=== PATIENT | female | born 1975 | race Caucasian/White ===

== ENCOUNTER 2019-06-23 06:35 | Outpatient (CLI) | payer OTHER, SELFPAY | END 2019-06-23 06:36 | disposition home or self-care (01) | PROVIDERS: PCP Family Medicine; Visit Provider Orthopaedic Surgery | DX: Z01.812 Encounter for preprocedural laboratory examination (principal); Z20.828 Contact with and (suspected) exposure to other viral communicable diseases | CPT/HCPCS: 87635; U0003 ==

== ENCOUNTER 2019-06-25 00:36 | Outpatient (CLI) | payer OTHER, SELFPAY ==
[2019-06-25 17:59] LABS: SARS-CoV-2 RNA PCR Negative
== END 2019-06-25 00:37 | disposition home or self-care (01) ==
LOC: ANHCOVIDDT 00:36
PROVIDERS: PCP Family Medicine; Visit Provider Orthopaedic Surgery
DX: Z01.812 Encounter for preprocedural laboratory examination (principal); Z20.828 Contact with and (suspected) exposure to other viral communicable diseases
CPT/HCPCS: 87635; C9803; U0003

== ENCOUNTER 2019-06-26 02:06 | Day surgery (SDC) | payer OTHER, SELFPAY ==
[2019-06-18 16:09] VITALS: BMI 18.4
--- NOTE | 2019-06-20 13:52 | PM.IMHP ---
H&P: HPI History of Present Illness Chief complaint: Right Medial Meniscal Tear Narrative: Ashtyn Machuca is a 44 year old female Who presents with a chronic ongoing history of pain localized to right knee. Patient has most of her pain medially this is worse with activity and somewhat relieved by rest, she has pain with twisting or turning on and knee squatting kneeling going up and down stairs aggravates her symptoms. She can't stand or walk for long periods and notes some swelling in the knee as well. She tried a course of conservative measures including cortisone therapy and anti-inflammatories without significant relief. The patient then underwent an MRI scan. An MRI scan demonstrates a small longitudinal horizontal tear at the body of the medial meniscus. Articular cartilage looks good lateral meniscus is normal. Posterior anterior and collateral ligaments are also normal and well visualized. There is some edema in the infrapatellar fat pad along the trochlear groove which could related to synovitis or fat pad impingement syndrome. The patient this point is failed conservative measures and discuss further treatment options in detail Dr. Dc she is aware the above findings and now would like to proceed with a right knee arthroscopy partial medial meniscectomy. Review of Systems Review of Systems: Narrative: Ten point review of systems otherwise negative Meds Home Medications and Allergies Home Medications Medication Instructions Recorded Confirmed Type ergocalciferol (vitamin D2) 50,000 unit PO MONTHLY 06/18/19 06/18/19 History [Vitamin D2] hydrocodone-acetaminophen 1 tablet PO DAILY 06/18/19 06/18/19 History trazodone 100 mg PO HS 06/18/19 06/18/19 History Allergies Allergy/AdvReac Type Severity Reaction Status Date / Time Penicillins Allergy Mild RASH Verified 06/18/19 16:13 Exam Narrative: Exam Narrative: the patient is well-developed well-nourished female no acute distress. She is alert and oriented x3. Normal mood and affect. HEENT exam within normal limits. Heart regular rate rhythm. Lungs clear auscultation. Abdomen benign. Extremities showed the patient's right knee to be painful with manipulation range of motion. She has tenderness on the medial joint line with a positive Luan exam negative Rebecca. Knee joint is otherwise stable. She has no significant crepitation mild effusion, somewhat limited motion with pain at extremes of motion. Skin is intact without rashes or lesions. Neurovascularly she is intact. Central nervous system exam within normal limits. Patient walks with an antalgic gait because of right knee pain. Assessment and Plan Additional Plan By MRI and exam the patient is noted to have a medial meniscal tear right knee with above associated findings. The patient has discussed risks benefits limitations and alternatives of surgery in great detail with Dr. Dc, she is now to proceed with right knee arthroscopy partial medial meniscectomy proceed as indicated. The patient is scheduled to go surgery 06/25/2019 at [facility] Dr. Dc, the patient voiced understanding agrees above plan.
[2019-06-26] VITALS (7 sets, daily range): BP systolic 110–136; BP diastolic 62–82; PULSE 52–69; RESP 12–16; TEMP 36.4–36.6; O2SAT 16–100
[2019-06-26] MEDS: LACTATED RINGERS 1,000 ML 30 ML IV CONT ×2 (08:00→11:10)
--- NOTE | 2019-06-26 08:50 | WPDANESEPPF ---
Anes - Initial Pre Proc Eval Procedure: Operation Date: 06/26/19 09:30 Proposed Procedures p Right Knee Arthroscopy, Partial Medial Meniscectomy, Proceed As Indicated - Eyal Dc MD Date/Time: 06/26/19 08:50 Surgeon: Eyal Dc MD Pre Op Diagnosis: Right Medial Meniscal Tear Patient Data Age: 44 Gender: F Height: 5 ft 9 in Weight: 54.5 kg Last Vital Signs Temp 36.6 C 06/26/19 08:17 Pulse 69 06/26/19 08:17 Resp 16 06/26/19 08:17 BP 110/69 06/26/19 08:17 Pulse Ox 100 06/26/19 08:17 Allergies Allergy/AdvReac Type Severity Reaction Status Date / Time Penicillins Allergy Mild RASH Verified 06/26/19 07:50 Home Medications Medication Instructions Recorded Confirmed Type ergocalciferol (vitamin D2) 50,000 unit PO MONTHLY 06/18/19 06/26/19 History [Vitamin D2] hydrocodone-acetaminophen 1 tablet PO DAILY 06/18/19 06/26/19 History trazodone 100 mg PO HS 06/18/19 06/26/19 History Patient hx anesthesia problems: none Family hx anesthesia problems: none PMFSH Surgical History Surgical History (Updated 06/26/19 @ 08:53 by Tim Arora MD) History of tubal ligation Anes - Eval Final PreProcedure Day of Procedure 06/26/19 08:50 Patient weight: normal Heart: regular rate and rhythm Lungs: clear to auscultation Airway: Mallampati scale class 1 Neurological: alert and oriented Last oral intake: >/= 8 hours ASA classification: I Emergent: no Anesthetic plan: proceed Anesthesia type and monitoring: general LMA and standard monitoring Informed Consent: The patient's anesthetic plan and its attendant risks and benefits were discussed with the patient/family/POA. Questions were solicited and answers provided to the satisfaction of the patient/family/POA.
--- NOTE | 2019-06-26 09:29 | WPDHPUPDATE1 ---
History and Physical Update Update Date/Time: 06/26/19 09:29 History and Physical has been reviewed, including an updated exam of the patient. There are NO changes in the patient's condition. Risks, benefits, and alternatives have been discussed and questions answered. Patient agrees to proceed with procedure.
[2019-06-26] MEDS: CLINDAMYCIN 900 MG/NS 50 ML 900 MG/50 ML PIGGYBACK 50 MG IVPB (09:34)
[2019-06-26] MEDS: LIDO 1%/EPINEPHRINE 1:100,000 20 ML VIAL 10 ML INFILTRATE (09:48)
[2019-06-26] MEDS: ceFAZolin SODIUM 1 GM VIAL 2 GM IV PUSH (09:58)
--- NOTE | 2019-06-26 10:10 | PM.PROC ---
Procedure Note - Detailed Date of procedure: 06/26/19 Pre-op diagnosis: Right Medial Meniscal Tear Post-op diagnosis: same Procedure performed: [side] knee arthroscopy with partial meniscetomy Description of procedure: Patient brought to the operating room and anesthetic was administered. The knee was steriley prepped and drapped in the usual manner. Standard portals were used. Superior medial portal was used for the outflow cannula, inferior lateral portal was used for the scope, inferior medial portal was used for the instruments. Arthroscopy was performed, the patellar femoral joint degenerative changes. The medial compartment showed a smaller tear. The lateral compartment showed fraying. The ACL was intact. Using baskets and greg the meniscal tear was trimmed back to a stable base so the nothing further could be pulled into the joint. Any loose or delaminated fragments were gently trimmed to a stable base. At this point the instruments were withdrawn, sutures placed and patient left the operating room in satisfactory condition. Anesthesia: GETA Surgeon: Eyal Dc MD Estimated blood loss (mL): 20 Drains: No Packing: No Pathology: none sent Complications: No immediate complications Condition: stable Disposition: PACU
[2019-06-26] MEDS: ONDANSETRON INJ 4 MG/2 ML VIAL IV PUSH (10:55)
== END 2019-06-26 12:31 | disposition home or self-care (01) ==
PROVIDERS: PCP Family Medicine; Visit Provider Orthopaedic Surgery
PROC: (CPT 29870; principal; 2019-06-26 09:30)
DX: M23.331 Other meniscus derangements, other medial meniscus, right knee (principal)
CPT/HCPCS: 29881; A9270; J0690; J1100; J2250; J2405; J2704; J3010; J7120

== ENCOUNTER 2019-07-02 10:44 | Outpatient (CLI) | payer OTHER, SELFPAY ==
--- NOTE | ~2019-07-02 | US_ITS ---
EXAMINATION: US venous doppler LE RT DATE: 07/02/2019 11:13 INDICATION: Right calf pain. TECHNIQUE: Grayscale ultrasound images without and with compression and Doppler ultrasound images of the right lower extremity veins were obtained. COMPARISON: None. FINDINGS: The visualized portions of right common femoral vein, profunda (deep) femoral vein, femoral vein, pop liteal vein, peroneal veins, posterior tibial veins, and greater saphenous vein outflow are patent. IMPRESSION: 1. No deep venous thrombosis. Reviewed, dictated and finalized at location A.
== END 2019-07-02 10:45 | disposition home or self-care (01) ==
PROVIDERS: PCP Family Medicine; Visit Provider Orthopaedic Surgery
DX: S83.241D Other tear of medial meniscus, current injury, right knee, subsequent encounter (principal); X58.XXXD Exposure to other specified factors, subsequent encounter
CPT/HCPCS: 93971

== ENCOUNTER → 2020-05-28 00:51 | Outpatient (CLI) | payer OTHER, SELFPAY ==
[2020-05-28 21:02] LABS: SARS-CoV-2 RNA PCR Positive
== END ==
PROVIDERS: PCP Family Medicine; Visit Provider Internal Medicine Gastroenterology
DX: U07.1 COVID-19 (principal); Z01.812 Encounter for preprocedural laboratory examination
CPT/HCPCS: C9803; U0003; U0005

== ENCOUNTER 2020-08-23 01:58 | Day surgery (SDC) | payer OTHER, SELFPAY ==
[2020-05-21 09:36] VITALS: BMI 17.7
--- NOTE | 2020-05-29 13:18 | SUR.PREOP ---
1310 CALLED PATIENT REGARDING HER COVID TEST RESULTS. DISCUSSED HER SYMPTOMS WHICH THE PATIENT SAID SHE WAS HAVING SINUS CONGESTION TWO WEEKS AGO AND THOUGHT IT WAS FROM HER ALLERGIES AND CHANGE IN WEATHER. SHE STATED SHE IS FEELING FINE NOW. DISCUSSED CANCELLING HER PROCEDURE FOR SUNDAY AND TO FOLLOW UP WITH DR. SANTILLAN. PATIENT WAS SCHEDULED FOR A SCREENING AND NOT HAVING ANY GI ISSUES. DR. BROWN NOTIFIED WELL.
[2020-08-13 08:06] VITALS: BMI 17.7
[2020-08-23 06:33] VITALS: BP 109/74; PULSE 73; RESP 16; TEMP 36.2; O2SAT 99; BMI 16.8
[2020-08-23] MEDS: LACTATED RINGERS 1,000 ML 150 ML IV CONT (06:43)
--- NOTE | 2020-08-23 07:15 | WPDANESEPPF ---
Anes - Initial Pre Proc Eval Procedure: Operation Date: 08/23/20 07:30 Proposed Procedures p Screening Colonoscopy - Nahun Quinonez MD Date/Time: 08/23/20 07:15 Surgeon: Nahun Quinonez MD Pre Op Diagnosis: Neoplasm Screening Patient Data Age: 45 Gender: F Height: 1.75 m Weight: 51.7 kg Last Vital Signs Temp 97.2 F L 08/23/20 06:33 Pulse 73 08/23/20 06:33 Resp 16 08/23/20 06:33 BP 109/74 08/23/20 06:33 Pulse Ox 99 08/23/20 06:33 Allergies Allergy/AdvReac Type Severity Reaction Status Date / Time Penicillins Allergy Intermediate RASH Verified 08/23/20 06:31 Home Medications Medication Instructions Recorded Confirmed Type ergocalciferol (vitamin D2) 50,000 unit PO MONTHLY 06/18/19 08/23/20 History [Vitamin D2] hydrocodone-acetaminophen 1 tablet PO DAILY 06/18/19 08/23/20 History trazodone 100 mg PO HS 06/18/19 08/23/20 History Patient hx anesthesia problems: none Family hx anesthesia problems: none PMFSH Past Medical History Medical History (Updated 08/23/20 @ 07:15 by Roman Alonso MD) Anxiety Surgical History Surgical History (Updated 06/26/19 @ 08:53 by Tim Arora MD) History of tubal ligation Social History Social History Smoking status: Never smoker Alcohol intake: never Substance use: never Substance use type: does not use Living arrangements: with family Gender identity (if verbalized by the patient): Female Spiritual care concerns: No Anes - Eval Final PreProcedure Day of Procedure 08/23/20 07:15 Patient weight: normal Heart: regular rate and rhythm Lungs: clear to auscultation Airway: Mallampati scale class II Neurological: alert and oriented Last oral intake: >/= 8 hours ASA classification: II Emergent: no Anesthetic plan: proceed Anesthesia type and monitoring: general GIVS and standard monitoring Informed Consent: The patient's anesthetic plan and its attendant risks and benefits were discussed with the patient/family/POA. Questions were solicited and answers provided to the satisfaction of the patient/family/POA.
--- NOTE | 2020-08-23 07:30 | PM.HPGS ---
History of Present Illness History of Present Illness Consent: Risks, benefits, and alternatives have been discussed and questions answered. Patient agrees to proceed with procedure. Chief complaint: Neoplasm Screening Narrative: Ashtyn Machuca is a 45 year old female here for first screening colonoscopy Review of Systems Constitutional: Constitutional: Denies headache(s) and Denies weakness Eyes: Eyes: Denies blurry vision ENT: Reports Normal hearing present, Denies headache(s) and Denies neck pain Cardiovascular: Cardiovascular: Denies chest pain and Denies dyspnea Respiratory: Respiratory: Denies dyspnea Gastrointestinal: Gastrointestinal: Reports no additional gastrointestinal complaints Genitourinary: Genitourinary: Denies dysuria Musculoskeletal: Musculoskeletal: Denies neck pain Integumentary/Breasts: Skin/Breast: Denies dry skin Neurologic: Reports Normal hearing present, Denies headache(s) and Denies weakness Psychiatric: Psychiatric: Denies anxiety Endocrine: Endocrine: Denies change in body appearance Hematologic/Lymphatic: Hematologic/Lymphatic: Denies easy bleeding Allergic/Immunologic: Allergic/Immunologic: Denies urticaria [facility] Past Medical History Medical History (Updated 08/23/20 @ 07:31 by Nahun Quinonez MD) Anxiety Colon cancer screening Surgical History Surgical History (Updated 06/26/19 @ 08:53 by Tim Arora MD) History of tubal ligation Social History Social History Smoking status: Never smoker Alcohol intake: never Substance use: never Substance use type: does not use Living arrangements: with family Gender identity (if verbalized by the patient): Female Spiritual care concerns: No Meds Home Medications and Allergies Home Medications Medication Instructions Recorded Confirmed Type ergocalciferol (vitamin D2) 50,000 unit PO MONTHLY 06/18/19 08/23/20 History [Vitamin D2] hydrocodone-acetaminophen 1 tablet PO DAILY 06/18/19 08/23/20 History trazodone 100 mg PO HS 06/18/19 08/23/20 History Allergies Allergy/AdvReac Type Severity Reaction Status Date / Time Penicillins Allergy Intermediate RASH Verified 08/23/20 06:31 Vital Signs Vital Signs - 24 hr 08/23/20 06:33 Temperature 97.2 F L Pulse Rate 73 Respiratory Rate 16 Blood Pressure 109/74 Pulse Oximetry 99 Exam Const: General: comfortable and no acute distress HENMT: General nose exam: Normal nares present Eyes: General: appearance normal, both eyes and all related structures Neck: Neck: no JVD Resp: Auscultation: clear to auscultation bilaterally Cardio: Rate: regular rate Rhythm: regular rhythm GI: Inspection: non-distended GI Palp: Yes Soft to palpation Skin: General skin exam: normal color Neuro: General: gait normal Speech: normal speech Extrem: General: normal to inspection Psych: Mental Status: mental status grossly normal Assessment and Plan Assessment and plan (1) Colon cancer screening: Code(s): Z12.11 - Encounter for screening for malignant neoplasm of colon Status: Acute Assessment and Plan: colonoscopy
[2020-08-23 07:51] VITALS: BP 110/72; PULSE 57; RESP 16; O2SAT 100
[2020-08-23 08:01] VITALS: BP 112/62; PULSE 59; RESP 19; O2SAT 100
[2020-08-23 08:11] VITALS: BP 119/79; PULSE 59; RESP 22; O2SAT 100
== END 2020-08-23 08:20 | disposition home or self-care (01) ==
PROVIDERS: PCP Family Medicine; Visit Provider Internal Medicine Gastroenterology
PROC: 0DJD8ZZ Inspection of Lower Intestinal Tract, Via Natural or Artificial Opening Endoscopic (ICD-10-PCS; CPT 45378; principal; 2020-08-23 07:30)
DX: Z12.11 Encounter for screening for malignant neoplasm of colon (principal); D12.4 Benign neoplasm of descending colon; K64.8 Other hemorrhoids; F41.9 Anxiety disorder, unspecified
CPT/HCPCS: 45385; 88305; J2704; J7120

== ENCOUNTER 2020-10-14 14:57 | Outpatient (CLI) | payer OTHER, SELFPAY ==
--- NOTE | ~2020-10-14 | US_ITS ---
EXAMINATION: US pelvic complete w TV DATE: 10/14/2020 15:51 INDICATION: Pelvic pain. Comparison:No prior studies for comparison. TECHNIQUE: Multiple transabdominal and endovaginal sonographic images of the pelvis performed. FINDINGS: The uterus measures 9.5 x 6.2 x 4.7 cm. The endometrial complex measures 9 mm. The right ovary measures 3.2 x 2 x 2.2 cm and the left ovary measures 2.3 x 1.6 x 1.6 cm. There is 1. 9 cm right ovarian cyst. There are small follicles in each ovary. Normal doppler signal in both ovari es. There is no free fluid in the pelvis. There are no abnormal masses seen on either side. IMPRESSION: 1. Right ovarian cyst measuring 1.9 cm. Reviewed, dictated and finalized at location A.
== END 2020-10-14 14:58 | disposition home or self-care (01) ==
PROVIDERS: PCP Family Medicine; Visit Provider Nurse Practitioner
DX: R10.2 Pelvic and perineal pain (principal); N83.201 Unspecified ovarian cyst, right side
CPT/HCPCS: 76830; 76856

== ENCOUNTER 2020-10-20 08:45 | Outpatient (CLI) | payer OTHER, SELFPAY ==
--- NOTE | 2020-10-20 11:30 | NEURO_ITS ---
Impression: # Complains of left hand pain and numbness. # Subtle evolving right Carpal Tunnel Syndrome. # No ulnar neuropathy. # Normal needle/EMG exam. Nerve Conduction Studies Anti Sensory Summary Table Stim Site NR Peak (ms) P-T Amp (?V) Site1 Site2 Delta-P (ms) Dist (cm) Dejon (m/s) Left Median Anti Sensory (2-3nd Digit) Wrist 3.0 80.7 Wrist 2-3nd Digit 3.0 14.0 47 Wrist 2.8 73.1 Wrist 2-3nd Digit 3.0 14.0 47 Right Median Anti Sensory (2-3nd Digit) Wrist 3.1 80.2 Wrist 2-3nd Digit 3.1 14.0 45 Wrist 3.1 72.1 Wrist 2-3nd Digit 3.1 14.0 45 Left Radial Anti Sensory (Base 1st Digit) Wrist 2.7 19.4 Wrist Base 1st Digit 2.7 0.0 Right Radial Anti Sensory (Base 1st Digit) Wrist 2.9 25.9 Wrist Base 1st Digit 2.9 0.0 Left Ulnar Anti Sensory (5th Digit) Wrist 2.8 86.1 Wrist 5th Digit 2.8 14.0 50 Right Ulnar Anti Sensory (5th Digit) Wrist 3.0 76.7 Wrist 5th Digit 3.0 14.0 47 Motor Summary Table Stim Site NR Onset (ms) O-P Amp (mV) Site1 Site2 Delta-0 (ms) Dist (cm) Dejon (m/s) Left Median Motor (Abd Poll Brev) Wrist 3.1 6.5 Elbow Wrist 5.3 31.0 58 Elbow 8.4 8.3 Right Median Motor (Abd Poll Brev) Wrist 3.8 3.9 Elbow Wrist 4.6 26.0 57 Elbow 8.4 5.1 Left Ulnar Motor (Abd Dig Minimi) Wrist 2.4 7.2 A Elbow Wrist 4.9 29.0 59 A Elbow 7.3 6.2 Right Ulnar Motor (Abd Dig Minimi) Wrist 2.8 6.9 A Elbow Wrist 4.8 27.0 56 A Elbow 7.6 5.6 F Wave Studies NR F-Lat (ms) L-R F-Lat (ms) Left Median (Mrkrs) (Abd Poll Brev) 28.42 0.94 Right Median (Mrkrs) (Abd Poll Brev) 29.36 0.94 Left Ulnar (Mrkrs) (Abd Dig Min) 28.19 1.17 Right Ulnar (Mrkrs) (Abd Dig Min) 29.36 1.17 EMG Side Muscle Nerve Root Ins Act Fibs Amp Dur Recrt Comment Right 1stDorInt Ulnar C8-T1 Nml Nml Nml Nml Nml Right Ext Indicis Radial (Post Int) C7-8 Nml Nml Nml Nml Nml Right Ext Digitorum Radial (Post Int) C7-8 Nml Nml Nml Nml Nml Right BrachioRad Radial C5-6 Nml Nml Nml Nml Nml Right PronatorTeres Median C6-7 Nml Nml Nml Nml Nml Right Abd Poll Brev Median C8-T1 Nml Nml Nml Nml Nml Left 1stDorInt Ulnar C8-T1 Nml Nml Nml Nml Nml Left Ext Indicis Radial (Post Int) C7-8 Nml Nml Nml Nml Nml Left Ext Digitorum Radial (Post Int) C7-8 Nml Nml Nml Nml Nml Left BrachioRad Radial C5-6 Nml Nml Nml Nml Nml Left PronatorTeres Median C6-7 Nml Nml Nml Nml Nml Left Abd Poll Brev Median C8-T1 Nml Nml Nml Nml Nml Right Biceps Musculocut C5-6 Nml Nml Nml Nml Nml Right Triceps Radial C6-7-8 Nml Nml Nml Nml Nml Right Deltoid Axillary C5-6 Nml Nml Nml Nml Nml Left Biceps Musculocut C5-6 Nml Nml Nml Nml Nml Left Triceps Radial C6-7-8 Nml Nml Nml Nml Nml Left Deltoid Axillary C5-6 Nml Nml Nml Nml Nml MTDD
== END 2020-10-20 08:46 | disposition home or self-care (01) ==
PROVIDERS: PCP Family Medicine; Visit Provider Family Medicine
DX: G56.01 Carpal tunnel syndrome, right upper limb (principal)
CPT/HCPCS: 95886; 95911

== ENCOUNTER 2022-01-25 13:02 | Emergency (ER) | payer OTHER, SELFPAY ==
[2022-01-25 13:04] VITALS: BP 164/84; PULSE 82; RESP 16; TEMP 36.8; O2SAT 100
[2022-01-25 13:40] LABS: Basophils Percent Auto 0.3 % (0.2-1.2); Eosinophils Percent Auto 0.5 % (0-4.4); Hemoglobin 12.8 g/dL (12.0-15.0); Immature Granulocyte Absolute 0.01 K/mm3 (0.00-0.031); Immature Granulocyte Percent A 0.3 % (0-0.5); Lymphocytes Absolute Auto 0.78 K/mm3 (0.9-3.2); Lymphocytes Percent Auto 19.6 % (18.3-44.2); Mean Corpuscular HGB Conc 32.8 g/dl (32-36); Mean Corpuscular Hemoglobin 30.8 pg (26-34); Mean Platelet Volume 10.5 fl (7.4-10.4); Monocytes Absolute Auto 0.5 K/mm3 (0.1-0.6); Monocytes Percent Auto 13.1 % (2.6-8.5); Neutrophils Absolute Auto 2.6 K/mm3 (1.3-6.7); Neutrophils Percent Auto 66.2 % (45.5-73.1); Platelet Count Result 175 k/mm3 (150-375); Red Blood Count 4.15 M/mm3 (4.2-5.4); Red Cell Distribution Width 11.2 % (11.5-14.5)
[2022-01-25 13:54] LABS: Alanine Aminotransferase 25 U/L (6-35); Albumin Level 4.7 g/dL (3.5-5.1); Alkaline Phosphatase 57 U/L (38-126); Anion Gap 7 mmol/L (8-16); Aspartate Amino Transferase 31 U/L (14-36); Blood Urea Nitrogen 21 mg/dL (7-17); Calcium 8.8 mg/dL (8.4-10.2); Carbon Dioxide 30 mmol/L (22-30); Chloride 101 mmol/L (98-107); Estimated CRCL calculation 81 ml/min; Estimated Glomerular Filt Rate > 60; Glucose 96 mg/dL (65-110); Lipase 125 U/L (23-300); Potassium 3.7 mmol/L (3.4-5.0); Sodium 138 mmol/L (137-145)
[2022-01-25 14:07] LABS: Add Urine Microscopic? YES; Appearance Urine Clear (Clear); Bilirubin Urine 1+ (Negative); Blood Urine Trace-Intact (Negative); Color Urine Light Yellow (Yellow); Glucose Urine UA Negative (Negative); Ketones Urine 1+ mg/dL (Negative); Leukocyte Esterase Ur Trace LEU/UL (Negative); Nitrate Urine Negative (Negative); Protein Urine Negative (Negative); Specific Grav Ur >= 1.030 (1.001-1.035); Urobilinogen Urine 0.2 mg/dL (<2.0); pH Urine 5.5 (5.0-9.0)
[2022-01-25 14:16] LABS: Bacteria Urine Trace /hpf; Calcium Oxalate Crystals Urine Many /hpf; Mucus Urine Few /lpf; Squamous Epithelial Cell Urine Few /hpf (Few)
--- NOTE | 2022-01-25 19:03 | PC.NURSE ---
left d/t wait time.
== END 2022-01-25 19:03 | disposition left against medical advice (07) ==
LOC: ANHED 19:11
PROVIDERS: Emergency Provider Emergency Medicine; PCP Family Medicine
DX: R10.9 Unspecified abdominal pain (principal)
CPT/HCPCS: 36415; 80053; 81001; 81025; 83690; 85025; 99199

== ENCOUNTER 2022-11-08 12:40 | Outpatient (CLI) | payer OTHER, SELFPAY ==
[2022-11-08 13:22] LABS: Basophils Percent Auto 0.6 % (0.2-1.2); Eosinophils Percent Auto 0.8 % (0-4.4); Hematocrit 36.2 % (37.0-47.0); Hemoglobin 11.7 g/dL (12.0-15.0); Immature Granulocyte Absolute 0.01 K/mm3 (0.00-0.031); Immature Granulocyte Percent A 0.2 % (0-0.5); Lymphocytes Percent Auto 33.8 % (18.3-44.2); Mean Corpuscular HGB Conc 32.3 g/dl (32-36); Mean Corpuscular Hemoglobin 30.9 pg (26-34); Mean Corpuscular Volume 95.5 fl (80-100); Mean Platelet Volume 10.7 fl (7.4-10.4); Monocytes Absolute Auto 0.4 K/mm3 (0.1-0.6); Monocytes Percent Auto 6.6 % (2.6-8.5); Neutrophils Absolute Auto 3.1 K/mm3 (1.3-6.7); Platelet Count Result 226 k/mm3 (150-375); Red Blood Count 3.79 M/mm3 (4.2-5.4); Red Cell Distribution Width 11.1 % (11.5-14.5); White Blood Count 5.3 K/mm3 (4.5-10.0)
== END 2022-11-08 12:41 | disposition home or self-care (01) ==
LOC: ANHLAB 12:42
PROVIDERS: PCP Family Medicine; Visit Provider Family Medicine
DX: D72.819 Decreased white blood cell count, unspecified (principal)
CPT/HCPCS: 36415; 85025

== ENCOUNTER 2024-01-27 08:36 | Outpatient (CLI) | payer OTHER, SELFPAY ==
--- NOTE | ~2024-01-27 | MR_ITS ---
EXAMINATION: MR shoulder LT wo con DATE: 01/27/2024 09:20 INDICATION: Other shoulder lesions, left shoulder. Chronic left shoulder pain. TECHNIQUE: Magnetic resonance imaging (MRI) of the left shoulder was performed without intravenous co ntrast. Sequences included axial PD-weighted FS FSE, coronal oblique PD-weighted FS FSE and T2-weight ed FS FSE, and sagittal oblique T2-weighted FS FSE and T1-weighted FSE. COMPARISON: Left shoulder radiographs 10/23/2023 FINDINGS: Coracoacromial arch: The acromion undersurface is flat in morphology (type I). There is mild acromioclavicular joint osteo arthritis. There is a physiologic volume of fluid in subacromial/subdeltoid bursa. Rotator cuff: There is mild supraspinatus and infraspinatus tendinopathy. Teres minor tendon is normal. There is mi ld subscapularis tendinopathy. The rotator cuff muscle bellies are normal. Biceps tendon and glenoid labrum: Biceps tendon is in bicipital groove. Intra-articular biceps tendon is normal. The glenoid labrum is normal. Fluid: There is no glenohumeral joint effusion. Bones/cartilage: The glenoid cartilage is normal. Humeral head cartilage is normal. IMPRESSION: 1. Mild rotator cuff tendinopathy. No tear. 2. Mild acromioclavicular joint osteoarthritis. Reviewed, dictated and finalized at location A. EY ENGINE FIRER
--- OUTSIDE RECORDS SUMMARY | 2024-02-03 06:46 | XMS_ITS | Referral Summary ---
Author Organization [facility] Address [address] [place] [address] Care Team Providers Care Tourist Cabin Keeper Name Role Phone Angelica Hearn MD Primary Care Provider + Allergies No known active allergies Medications busPIRone (BUSPAR) 15 mg tablet TAKE 1/2 TO 1 (ONE-HALF TO ONE) TABLET BY MOUTH THREE TIMES DAILY NEEDED FOR STRESS 06/19/2022 Active ergocalciferol (VITAMIN D) 50,000 unit capsule TAKE 1 CAPSULE BY MOUTH ONCE EVERY MONTH 06/21/2022 Active HYDROcodone-nicolas taminophen (NORCO) 10-325 mg per tablet Take 1 tablet by mouth every 6 (six) hours 06/07/2022 Active neomycin-polymy blessing-HC (CORTISPORIN) 3.5-10,000-1 mg/mL-unit/mL-% otic suspension INSTILL 4 DROPS INTO AFFECTED EAR(S) THREE TIMES DAILY FOR 7 DAYS 04/10/2022 Active traZODone (DESYREL) 100 mg tablet TAKE 1 & 1/2 (ONE & ONE-HALF) TABLETS BY MOUTH EVERY DAY AT BEDTIME NEEDED FOR INSOMNIA 05/20/2022 Active BUPivacaine HCl (MARCAINE) 0.5 % (5 mg/mL) injection 16 mL (80 mg total) Active Active Problems No known active problems Social History Tobacco Use Types Packs/Day Years Used Date Smoking Tobacco: Never Smokeless Tobacco: Never Tobacco Cessation:Counseling Given: Not Answered AUDIT-C Answer Date Recorded Q1: How often do you have a drink containing alcohol? Never 06/30/2022 Q2: How many drinks containi ng alcohol do you have on a typical day when you are drinking? Patient does not drink Q3: How often do you have si x or more drinks on one occasion? 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 Gender Identity Not on file Sexual Orientation Not on file Last Filed Vital Signs Vital Sign Reading Time Taken Comments Blood Pressure - - Pulse - - Temperature - - Respiratory Rate - - Oxygen Saturation - - Inhaled Oxygen Concentration - - Weight 55.3 kg (122 lb) 06/30/2022 8:39 AM CDT Height 175.3 cm (5' 9 ) 06/30/2022 8:39 AM CDT Body Mass Index 18.02 06/30/2022 8:39 AM CDT Plan of Treatment Not on file Insurance [facility] Care Teams Tourist Cabin Keeper Relationship Specialty Start Date End Date Angelica Hearn MD [address] [place] [address] DR ROMERO [address] [place] [id number] PCP - General Family Medicine 05/03/22
--- OUTSIDE RECORDS SUMMARY | 2024-02-03 06:46 | XMS_ITS | Encounter Summary ---
Author Organization [facility] Address [address] [place] [address] Phone Care Team Providers Care Metaphysician Name Role Phone Angelica Hearn MD Primary Care Provider + Reason for Visit * Consultation (Routine) - Closed Specialty Diagnoses / Procedures Referred By Contac t Referred To Contact Otolaryngology Diagnoses Otalgia, right ear Angelica Hearn MD [address] [place] [address] [address] [place] [address] Phone: tel: fax: [facility] (All Locations) Referral ID Status Reason Start Date Expiration Date V isits Requested Visits Authorized [id number] Closed Specialty Services Required 04/12/2022 05/12/2023 99 [phone] Encounter Details Date Type Department Care Team (Late st Contact Info) Description 06/30/2022 8:40 AM CDT Office Visit [facility] ([facility]) - [facility] ENT [address] [facility] Advanced Medicine 11th [place] [address] [place] [address] Angelica Daugherty PA [address] [facility] [address] [place] [address] TMJ arthralgia (Primary Dx); Otalgia, right ear Social History Tobacco Use Types Packs/Day Years [...] more drinks on one occasion? Never 06/30/2022 Comments Unknown Sex and Gender Information Value Date Recorded Sex Assigned at Not on file Legal Sex Female 10:05 AM PATIENT [facility] M[facility] Gender Identity Not on file Sexual Orientation Not on file documented as of this encounter Last Filed Vital Signs Vital Sign Reading Time Taken Comments Blood Pressure - - Pulse - - Temperature - - Respiratory Rate - - Oxygen Saturation - - Inhaled Oxygen Concentration - - Weight 55.3 kg (122 lb) 06/30/2022 8:39 AM CDT Height 175.3 cm (5' 9 ) 06/30/2022 8:39 AM CDT Body Mass Index 18.02 06/30/2022 8:39 AM CDT documented in this encounter Patient Instructions * Patient Instructions* Angelica Daugherty PA - 06/30/2022 8:40 AM CDT Bite guard, if improvement- can discuss with dentist regarding more personalized fit. Ibuprofen if painful If no improvement, let me know and we can refer to physical therapy My office number [phone] documented in this encounter Progress Notes * Angelica Daugherty PA - 06/30/2022 8:40 AM CDT Otolaryngology New Patient or Consult Note Subjective Patient ID: Ashtyn Machuca is a 47 y.o. female. Chief Complaint: No chief complaint on file. HPI: Ashtyn Machuca is a 47 y.o. female here for evaluation of at least 4 month history of right earpain. Patient reports intermittent fullness sensation in the right ear. She feels as though there something stuck in her ear and it can be sore with Q-tip use. PCP prescribed Cortisporin drops which did not change symptoms. Her left ear is rarely affected. She denies hearing loss, otorrhea, tinnitus. She also has no concerning sore throat, voice changes, dysphagia. She deals with seasonal allergies-postnasal drip, rhinorrhea, and raspy voice in morning. Patient reports jaw pain that is worse in the morning and with increased stress, she has been grinding her teeth at night. Review of Systems The patient-completed Review of Systems was reviewed and was scanned as an attachment to this encounter. Objective Ht 175.3 cm (5' 9 ) Wt 55.3 kg (122 lb) BMI 18.02 kg/m?? Physical Exam GENERAL: Well-developed, well-nourished. Voice quality is normal. NEURO/PSYCH: Cranial nerves II- XII are grossly normal. Affect is normal. Alert and oriented. HEAD/FACE: Normocephalic; atraumatic. No facial skin lesions. Facial strength is 5/5 and the face is symmetric. With krupa-microscopy EARS: External ears with no skin lesions. Hearing is grossly normal. Right: EAC patent. TM intact. Middle ear aerated. Left: EAC patent. TM intact. Middle ear aerated. NOSE: External nose has no skin lesions. Nasal mucosa is moist. Septum is midline. Turbinates are normal. Clear mucus drainage. No polyps or masses visible on anterior rhinoscopy. ORAL CAVITY/OROPHARYNX: Normal oral vestibule. Oral mucosa is moist and with no lesions. Tongue protrudes midline and floor of mouth is pink and soft. Palate has no lesions and elevates symmetrically. Oropharynx is clear. NECK: No masses. Trachea is midline. Thyroid is normal in size with no apparent nodules LYMPHATIC: No cervical lymphadenopathy. MUSCULOSKELETAL: Ambulates without difficulty. Neck full range of motion. Crepitus at bilateral TMJ RESPIRATORY: Breathing comfortably through nose without audible wheeze, stertor or stridor. Assessment/Plan 1. TMJ arthralgia 2. Otalgia, right ear No concerning findings on the ear exam. Patient is likely dealing with referred pain from TMJ arthralgia. Recommend temporary bite guard trial. Encouraged softer diet for the next few weeks. Okay to use ibuprofen as needed. May consider referral for physical therapy if minimal improvement. Follow up with phone call with symptom update. Angelica Daugherty PA-C documented in this encounter Plan of Treatment Not on file documented as of this encounter Visit Diagnoses Diagnosis TMJ arthralgia- Primary Arthralgia of temporomandibular joint Otalgia, right ear documented in this encounter Discontinued Medications Medication Sig Discontinue Reason Start Date End Da te ergocalciferol (VITAMIN D) 50,000 unit capsule Take 1.25 mg by mouth Therapy completed 06/30/2022 busPIRone (BUSPAR) 15 mg tablet Take 1 tablet (15 mg total) by mouth 3 (three) times a day Therapy completed 06/30/2022 traZODone (DESYREL) 100 mg tablet Take 1 tablet (100 mg total) by mouth nightly Therapy completed 06/30/2022 predniSONE (DELTASONE) 10 mg tablet TAKE 1 TAB BY MOUTH THREE TIMES DAILY FOR 3 DAYS, AND THEN TAKE 1 TAB TWICE DAILY FOR 2 DAYS, AND THEN TAKE 1 TAB ONCE DAILY FOR 1 DAY Therapy completed 04/20/2022 06/30/2022 HYDROcodone-acetaminophe n (NORCO) 10-325 mg per tablet Take 1 tablet by mouth every 6 (six) hours as needed Therapy completed 06/30/2022 documented as of this encounter Historical Medications * This list may reflect changes made after this encounter. BUPivacaine HCl (MARCAINE) 0.5 % (5 mg/mL) injection 16 mL (80 mg total) traZODone (DESYREL) 100 mg tablet TAKE 1 & 1/2 (ONE & ONE-HALF) TABLETS BY MOUTH EVERY DAY AT BEDTIME NEEDED FOR INSOMNIA 05/20/2022 neomycin-polymyx in-HC (CORTISPORIN) 3.5-10,000-1 mg/mL-unit/mL-% otic suspension INSTILL 4 DROPS INTO AFFECTED EAR(S) THREE TIMES DAILY FOR 7 DAYS 04/10/2022 HYDROcodone-acet aminophen (NORCO) 10-325 mg per tablet Take 1 tablet by mouth every 6 (six) hours 06/07/2022 ergocalciferol (VITAMIN D) 50,000 unit capsule TAKE 1 CAPSULE BY MOUTH ONCE EVERY MONTH 06/21/2022 busPIRone (BUSPAR) 15 mg tablet TAKE 1/2 TO 1 (ONE-HALF TO ONE) TABLET BY MOUTH THREE TIMES DAILY NEEDED FOR STRESS 06/19/2022 traZODone (DESYREL) 100 mg tablet Take 1 tablet (100 mg total) by mouth nightly 06/30/2022 predniSONE (DELTASONE) 10 mg tablet TAKE 1 TAB BY MOUTH THREE TIMES DAILY FOR 3 DAYS, AND THEN TAKE 1 TAB TWICE DAILY FOR 2 DAYS, AND THEN TAKE 1 TAB ONCE DAILY FOR 1 DAY 04/20/2022 06/30/2022 HYDROcodone-acet aminophen (NORCO) 10-325 mg per tablet Take 1 tablet by mouth every 6 (six) hours as needed 06/30/2022 ergocalciferol (VITAMIN D) 50,000 unit capsule Take 1.25 mg by mouth 06/30/2022 busPIRone (BUSPAR) 15 mg tablet Take 1 tablet (15 mg total) by mouth 3 (three) times a day 06/30/2022 added in this encounter Orders Outpatient Referral Count Last Ordered Date Fir st Ordered Date AMB REFERRAL TO ENT 1 06/30/2022 documented in this encounter Care Teams Metaphysician Relationship Specialty Start Date End Date Angelica Hearn MD [address] [place] [address] [place] [id number] PCP - General Family Medicine 05/03/22 documented as of this encounter
--- OUTSIDE RECORDS SUMMARY | 2024-02-03 06:46 | XMS_ITS | Encounter Summary ---
Author Organization [facility] Address [address] [place] [address] Care Team Providers Care Scrap Carrier Name Role Phone Unavailable Primary Care Provider Unavailabl e Encounter Details Date Type Department Care Team (Late st Contact Info) Description 08/07/2023 External Device Data [facility] ABSTRACTION Provider, Abstract NO ADDRESS ON FILE Social History Tobacco Use Types Packs/Day Years Used Date Smoking Tobacco: Never Assessed Sex and Gender Information Value Date Recorded Sex Assigned at Not on file Gender Identity Not on file Sexual Orientation Not on file documented as of this encounter Plan of Treatment Not on file documented as of this encounter Visit Diagnoses Not on filedocumented in this encounter
--- OUTSIDE RECORDS SUMMARY | 2024-02-03 06:46 | XMS_ITS | Encounter Summary ---
Author Organization [facility] Address [address] [place] [address] Care Team Providers Care Process Project Engineer Name Role Phone Unavailable Primary Care Provider Unavailabl e Encounter Details Date Type Department Care Team (Late st Contact Info) Description 10/23/2023 External Device Data STL ABSTRACTION Provider, Abstract [...]
--- OUTSIDE RECORDS SUMMARY | 2024-02-03 06:46 | XMS_ITS | Encounter Summary ---
Author Organization [facility] Address [address] [facility] [place] [address] Care Team Providers Care Metal Stamper Name Role Phone Angelica Hearn MD Primary Care Provider [phone] Encounter Details Date Type Department Care Team (Latest Contact Info) Description 03/09/2014 Hospital Outpatient Visit [facility] [address] [place], [place] [id number] Discharge Disposition: Home or Self Care Social History Tobacco Use Types Packs/Day Years Used Date Smoking Tobacco: Never Smokeless Tobacco: Never Alcohol Use Standard Drinks/Week Comments Not Asked 0 (1 standard drink = 0.6 oz pur e alcohol) Sex and Gender Information Value Date Recorded Sex Assigned at Not on file Gender Identity Not on file Sexual Orientation Not on file documented as of this encounter Plan of Treatment Not on file documented as of this encounter Procedures Procedure Name Priority Date/Time Associated Diagnosis Comments US BREAST UNILATERAL LTD Routine 03/09/2014 11:40 AM ENVELOPE SEALING MACHINE OPERATOR MAMMO RIGHT DIAGNOSTIC Routine 03/09/2014 11:33 AM ENVELOPE SEALING MACHINE OPERATOR documented in this encounter Results * US BREAST UNILATERAL LTD (03/09/2014 11:40 AM ENVELOPE SEALING MACHINE OPERATOR) Anatomical Region Laterality Modality Other Impressions 03/09/2014 4:17 PM ENVELOPE SEALING MACHINE OPERATOR IMPRESSION: Mass with internal calcification in the slightly lower outer subareolar right breast. Recommend biopsy. BI-RADS category 4B, intermediate suspicious findings. I, Dr. MARIANELA WALKER M.D. have personally reviewed and interpreted this examination/study. This report was electronically signed by MARIANELA WALKER M.D. ??on 03/09/2014 4:17 PM . Narrative 03/09/2014 4:17 PM ENVELOPE SEALING MACHINE OPERATOR Right diagnostic mammography. Targeted right breast ultrasound. Date: ?? 03/09/2014 Comparison: 03/02/2014. History: Subareolar right breast mass with calcifications Findings: Mammogram: The right breast was imaged in craniocaudal, mediolateral oblique, and mediolateral views. Additional magnification views were obtained. The small mass in the lower outer right breast is redemonstrated however its borders are obscured by the dense breast tissue. There are internal amorphous calcifications in the mass. Ultrasound: Within the right breast at approximately the 6:00 position, in the subareolar tissue, there is a well-circumscribed solid hypoechoic mass with internal calcifications measuring 1 cm. The mass is immediately deep to the skin. The results of this examination were discussed with the patient by Dr. Walker. Procedure Note Mayte Walker MD - 05/05/2017 Right diagnostic mammography. Targeted right breast ultrasound. Date: 03/09/2014 Comparison: 03/02/2014. History: Subareolar right breast mass with calcifications Findings: Mammogram: The right breast was imaged in craniocaudal, mediolateral oblique, andmediolateral views. Additional magnification views were obtained. The small mass in the lower outer right breast is redemonstrated howeverits borders are obscured by the dense breast tissue. There are internalamorphous calcifications in the mass. Ultrasound: Within the right breast at approximately the 6:00 position, in thesubareolar tissue, there is a well-circumscribed solid hypoechoic masswith internal calcifications measuring 1 cm. The mass is immediately deepto the skin. The results of this examination were discussed with the patient by . IMPRESSION IMPRESSION: Mass with internal calcification in the slightly lower outer subareolarright breast. Recommend biopsy. BI-RADS category 4B, intermediate suspicious findings. I, Dr. MARIANELA WALKER M.D. have personally reviewed and interpreted thisexamination/study. This report was electronically signed by MARIANELA WALKER M.D. on03/09/2014 4:17 PM . Padmaja Ramos MD US ORDERABLES * MAMMO RIGHT DIAGNOSTIC (03/09/2014 11:33 AM ENVELOPE SEALING MACHINE OPERATOR) Anatomical Region Laterality Modality Right Other Impressions 03/09/2014 4:17 PM ENVELOPE SEALING MACHINE OPERATOR IMPRESSION: Mass with internal calcification in the slightly lower outer subareolar right breast. Recommend biopsy. BI-RADS category 4B, intermediate suspicious findings. I, Dr. MARIANELA WALKER M.D. have personally reviewed and interpreted this examination/study. This report was electronically signed by MARIANELA WALKER M.D. ??on 03/09/2014 4:17 PM . Narrative 03/09/2014 4:17 PM ENVELOPE SEALING MACHINE OPERATOR Right diagnostic mammography. Targeted right breast ultrasound. Date: ?? 03/09/2014 Comparison: 03/02/2014. History: Subareolar right breast mass with calcifications Findings: Mammogram: The right breast was imaged in craniocaudal, mediolateral oblique, and mediolateral views. Additional magnification views were obtained. The small mass in the lower outer right breast is redemonstrated however its borders are obscured by the dense breast tissue. There are internal amorphous calcifications in the mass. Ultrasound: Within the right breast at approximately the 6:00 position, in the subareolar tissue, there is a well-circumscribed solid hypoechoic mass with internal calcifications measuring 1 cm. The mass is immediately deep to the skin. The results of this examination were discussed with the patient by Dr. Walker. Procedure Note Mayte Walker MD - 05/05/2017 Right diagnostic mammography. Targeted right breast ultrasound. Date: 03/09/2014 Comparison: 03/02/2014. History: Subareolar right breast mass with calcifications Findings: Mammogram: The right breast was imaged in craniocaudal, mediolateral oblique, andmediolateral views. Additional magnification views were obtained. The small mass in the lower outer right breast is redemonstrated howeverits borders are obscured by the dense breast tissue. There are internalamorphous calcifications in the mass. Ultrasound: Within the right breast at approximately the 6:00 position, in thesubareolar tissue, there is a well-circumscribed solid hypoechoic masswith internal calcifications measuring 1 cm. The mass is immediately deepto the skin. The results of this examination were discussed with the patient by . IMPRESSION IMPRESSION: Mass with internal calcification in the slightly lower outer subareolarright breast. Recommend biopsy. BI-RADS category 4B, intermediate suspicious findings. I, Dr. MARIANELA WALKER M.D. have personally reviewed and interpreted thisexamination/study. This report was electronically signed by MARIANELA WALKER M.D. on03/09/2014 4:17 PM . Padmaja Ramos MD MAMMO ORDERABLES documented in this encounter Visit Diagnoses Diagnosis Abnormal mammogram Abnormal mammogram, unspecified documented in this encounter Care Teams Metal Stamper Relationship Specialty Start Date End Date Angelica Hearn MD [address] [place] [address] [place] [address] PCP - General 03/03/14 documented as of this encounter
--- OUTSIDE RECORDS SUMMARY | 2024-02-03 06:46 | XMS_ITS | Clinical Summary ---
Author Organization [facility] Address [address] [facility] [place] [address] Care Team Providers Care Ceramic Saw Tender Name Role Phone Angelica Hearn MD Primary Care Provider [phone] Source Comments [facility],non-owned Affiliates and Associated Physician Practices is amultiple site organization consisting of ambulatory clinics and hospital sitesin [place], [place], [place] and [place]. This disclosure is being madepursuant to the Care Everywhere program and may not contain all information available regarding this patient. Last updated 17.[facility] Allergies No known active allergies Medications * Be aware that medications may not be up to date on this document. Alwaysverify current medications with the patient. Medication Sig Dispensed Refills Start Date End Date Status traZODone (DESYREL) 100 MG tablet 04/25/2021 Active busPIRone (BUSPAR) 15 MG tablet 06/07/2021 Active vitamin D, ergocalciferol, (DRISDOL) 1.25 MG (66519 UT) capsule 06/27/2021 Active HYDROcodone-acetami nophen (NORCO) 10-325 MG tablet hydrocodone 10 mg-acetaminophen 325 mg tablet TAKE 1 TABLET EVERY 4 HOURS BY ORAL ROUTE Active diclofenac sodium EC (VOLTAREN) 75 MG tablet 04/11/2021 Active medroxyPROGESTERone (PROVERA) 10 MG tablet 02/28/2021 Active lidocaine PF 0.5% (XYLOCAINE) 0.5 % injection 30 mg Active triamcinolone acetonide (KENALOG) injection Kenalog 10 mg/mL suspension for injection In office injection administered by the provider Active Active Problems Problem Noted Date Diagnosed Date Other abnormal and inconclus cal findings on diagnostic imaging of breast 03/09/2014 Family History Medical History Relation Name Comments Cancer Paternal Aunt Paternal aunt x 2 with breast cancer Cancer Paternal Uncle Prostate Canc er Relation Name Status Comments Paternal Aunt Paternal Uncle Social History Tobacco Use Types Packs/Day Years Used Date Smoking Tobacco: Never Smokeless Tobacco: Never Alcohol Use Standard Drinks/Week Comments Never 0 (1 standard drink = 0.6 oz pur e alcohol) Sex and Gender Information Value Date Recorded Sex Assigned at Not on file Gender Identity Not on file Sexual Orientation Not on file Last Filed Vital Signs Vital Sign Reading Time Taken Comments Blood Pressure 145/91 07/12/2021 9:29 AM CDT Pulse 65 07/12/2021 9:29 AM CDT Temperature 36.7 ??C (98 ??F) 07/12/2021 9:29 AM CDT Respiratory Rate 18 07/12/2021 9:29 AM CDT Oxygen Saturation 100% 07/12/2021 9:29 AM CDT Inhaled Oxygen Concentration - - Weight 53.5 kg (118 lb) 07/12/2021 9:29 AM CDT Height 175.3 cm (5' 9 ) 07/12/2021 9:29 AM CDT Body Mass Index 17.43 07/12/2021 9:29 AM CDT Plan of Treatment Health Maintenance Due Date Last Done Comments COLOGUARD (AGES 45-75) - COLON CA SCREENING 1973 COLON MONITORING 1973 COLONOSCOPY - COLON CA SCREENING 1973 CT COLONOGRAPHY - COLON CA SCREENING 1973 Colorectal Cancer Screening 1973 FIT - COLON CA SCREENING 1973 FLEX SIG - COLON CA SCREENING 1973 LIPID TESTING 1973 PAP SMEAR 1973 HIV SCREENING 01/17/1988 HEPATITIS C SCREENING 01/12/1991 DTAP/TDAP/TD VACCINES (1 - Tdap) 01/17/1992 HEPATITIS B VACCINE (1 of 3 - 19+ 3-dose series) 01/17/1992 MAMMOGRAM 03/09/2016 03/09/2014 ZOSTER VACCINE (1 of 2) 2023 DEPRESSION SCREENING 02/05/2023 COVID-19 VACCINE ( - season) 2023 INFLUENZA VACCINE (#1) 2023 , 01/20/2019, 10/18/2017, Additional history exists HIB VACCINE Aged Out No longer eligi ble based on patient's age to complete this topic HPV VACCINE Aged Out No longer eligi ble based on patient's age to complete this topic MENINGOCOCCAL VACCINE Aged Out No malinda josefa eligible based on patient's age to complete this topic PNEUMOCOCCAL VACCINE Aged Out No long er eligible based on patient's age to complete this topic Procedures Procedure Name Priority Date/Time Associated Diagnosis Comments MAMMO RIGHT DIAGNOSTIC Routine 03/09/2014 11:33 AM CHIEF CARDIOPULMONARY TECHNOLOGIST from Last 3 Months or Most Recently Relevant to Health Maintenance Results * MAMMO RIGHT DIAGNOSTIC (03/09/2014 11:33 AM CHIEF CARDIOPULMONARY TECHNOLOGIST) Anatomical Region Laterality Modality Right Other Impressions 03/09/2014 4:17 PM CHIEF CARDIOPULMONARY TECHNOLOGIST IMPRESSION: Mass with internal calcification in the slightly lower outer subareolar right breast. Recommend biopsy. BI-RADS category 4B, intermediate suspicious findings. I, Dr. MARIANELA WALKER M.D. have personally reviewed and interpreted this examination/study. This report was electronically signed by MARIANELA WALKER M.D. ??on 03/09/2014 4:17 PM . Narrative 03/09/2014 4:17 PM CHIEF CARDIOPULMONARY TECHNOLOGIST Right diagnostic mammography. Targeted right breast ultrasound. [...] PM . Padmaja Ramos MD MAMMO ORDERABLES from Last 3 Months or Most Recently Relevant to Health Maintenance Care Teams Ceramic Saw Tender Relationship Specialty Start Date End Date Angelica Hearn MD [address] [place] [address] PCP - General 03/03/14
--- OUTSIDE RECORDS SUMMARY | 2024-02-03 06:46 | XMS_ITS | Encounter Summary ---
Author Organization [facility] Address [address] [facility] [place] [address] Care Team Providers Care Management Professionals Name Role Phone Angelica Hearn MD Primary Care Provider [phone] Encounter Details Date Type Department Care Team (Latest Contact Info) Description 03/09/2014 Hospital Outpatient Visit [facility] [address] [place] [id number] Padmaja Ramos MD [address] [place] [address] Discharge Disposition: Home or Self Care Social [...] Procedure Name Priority Date/Time Associated Diagnosis Comments PATHOLOGY TISSUE Routine 03/09/2014 2:45 PM FOOT DOCTOR BREAST BIOPSY Routine 03/09/2014 2:30 PM FOOT DOCTOR documented in this encounter Results * PATHOLOGY TISSUE (03/09/2014 2:45 PM FOOT DOCTOR) Surgical Pathology Tissue CLINICAL HISTORY: There is no clinical history provided on the accompanying specimen requisition. FINAL DIAGNOSIS: BREAST, RIGHT, BIOPSY: ?- ??PSEUDOANGIOMATOUS STROMAL HYPERPLASIA ?- ??EPITHELIAL HYPERPLASIA, MINIMAL ?- ??APOCRINE METAPLASIA ?- ??MICROCALCIFICATION GROSS DESCRIPTION: Received fixed in formalin in one container for gross and microscopic examination, labeled with the patient's name Ashtyn Machuca and right breast , are two soft white-thorne needle cores measuring 1.0 cm and 0.7 cm in length. ??The specimen is strained into a mesh bag and submitted in toto as cassette A1. Specimen processing times are as follows: Date of collection: ??03/09/2014 Time of collection: ??2:00 p.m. Time placed in formalin: ??2:00 p.m. Cold ischemia time: ??<1 minute Total formalin fixation time: ??30 hours VG/edk MICROSCOPIC DESCRIPTION: Review of the material reveals multiple changes. Pseudoangiomatous stromal hyperplasia is noted. ??Apocrine metaplasia is identified. ??Mild epithelial hyperplasia of usual type is noted. ??Microcalcification is present. ??No invasive tumor is identified. SB/VG/edk The performance characteristics of all immunohistochemical and indirect immunofluorescence stains (if any) cited in this report were determined by the [facility] Laboratory of [facility].?? Some of these tests were developed by our own laboratory and have not been cleared or approved by the US Food and Drug Administration.?The FDA does not require this test to go through premarket FDA review.?These tests are used for clinical purposes. They should not be regarded as investigational or for research.?? This laboratory is certified under the Clinical Laboratory Improvement Amendments (CLIA) as qualified to perform high complexity clinical laboratory testing. This case has been personally reviewed and interpreted by the attending (teaching) pathologist. Final Diagnosis performed by Enid Blackburn MD. Electronically signed 03/11/2014 [facility] Other (qualifier value) 03/09/2014 2:45 PM FOOT DOCTOR 03/09/2014 4:14 PM FOOT DOCTOR Narrative [facility] ([facility] - 03/11/2014 1:54 PM FOOT DOCTOR Collection Date->03/09/14 Collection Time-> 2:00 PM Specimen A->Breast, Right Lower Outer Mayte Walker MD LAB - PATHOLOGY/C YTOLOGY ORDERABLES [facility] ([facility]) * US BREAST BIOPSY (03/09/2014 2:30 PM FOOT DOCTOR) Anatomical Region Laterality Modality Other Addenda Addendum by Mayte Walker MD on 03/11/2014 3:40 PM FOOT DOCTOR Biopsy addendum: Final pathology reveals pseudo angiomatosis stromal hyperplasia, epithelial hyperplasia, apocrine metaplasia, and microcalcification. No atypia or malignancy was seen. This is concordant with preprocedure imaging. Dr. Padmaja Ramos, the patient's breast surgeon, will discuss the results with her and schedule followup. These results were discussed with Dr. Padmaja Ramos by Dr. Walker on 03/11/2013. Due to the benign biopsy result, as well as the pathologic result, a six-month followup evaluation with mammography and ultrasound is recommended of the right breast. BI-RADS category 3, probably benign findings. This report was electronically signed by MARIANELA WALKER M.D. ??on 03/11/2014 3:40 PM . Addendum by Mayte Walker MD on 03/11/2014 3:40 PM FOOT DOCTOR Biopsy addendum: Final pathology reveals pseudo angiomatosis stromal hyperplasia, epithelial hyperplasia, apocrine metaplasia, and microcalcification. No atypia or malignancy was seen. This is concordant with preprocedure imaging. Dr. Padmaja Ramos, the patient's breast surgeon, will discuss the results with her and schedule followup. These results were discussed with Dr. Padmaja Ramos by Dr. Walker on 03/11/2013. Due to the benign biopsy result, as well as the pathologic result, a six-month followup evaluation with mammography and ultrasound is recommended of the right breast. BI-RADS category 3, probably benign findings. This report was electronically signed by MARIANELA WALKER M.D. ??on 03/11/2014 3:40 PM . Impressions 03/11/2014 3:40 PM FOOT DOCTOR IMPRESSION: Technically successful ultrasound guided core biopsy of the right breast. Please see pathology report for pathologic analysis. I, Dr. MARIANELA WALKER M.D. have personally reviewed and interpreted this examination/study. This report was electronically signed by MARIANELA WALKER M.D. ??on 03/09/2014 4:18 PM . ADDENDUM #1 Narrative 03/11/2014 3:40 PM FOOT DOCTOR ORIGINAL REPORT Ultrasound guided core biopsy of the right breast. Placement of marker clip Unilateral diagnostic mammography COMPARISON: Mammography ultrasound dated the same day 03/09/2014. HISTORY / INDICATION: Mass in the subareolar right breast. TECHNIQUE AND FINDINGS: ??Preprocedure images were reviewed. ??Hospital time out procedure was performed. Informed consent was obtained and documented. The procedure and its risks benefits were discussed with the patient, including, but not limited to, bleeding, infection, nondiagnostic specimen, chest wall injury including pneumothorax. Biopsy procedure: The hypoechoic lesion in the right breast was reidentified. ??The overlying skin was prepped and draped in usual sterile fashion. 5 cc of 1% lidocaine with epinephrine buffered with bicarbonate was given for local anesthesia at the skin surface. Using sonographic guidance, 15 cc of 1% lidocaine with epinephrine buffered with bicarbonate was given for deeper anesthesia. A 5 mm incision was made in the skin with an 11 blade scalpel. Using sonographic guidance, a 14-gauge core biopsy device was inserted adjacent to the lesion. 2 samples were obtained. A biopsy clip was then placed via ultrasound guidance and the device was removed from the breast. Firm pressure was held until bleeding stopped. The patient was then transferred to the mammographic suite and a craniocaudal and mediolateral projection of the right breast were obtained. The clip migrated slightly from the deployment site, located 1.5 cm lateral to the biopsy site. Firm pressure was then held for 10 minutes, and the biopsy site redressed. The patient was discharged from the breast imaging center in stable condition. Blood loss was minimal. The attending physician, Dr. Marianela Walker, was present for the entire procedure. Procedure Note Mayte Walker MD - 07/28/2019 ORIGINAL REPORT Ultrasound guided core biopsy of the right breast. Placement of marker clip Unilateral diagnostic mammography COMPARISON: Mammography ultrasound dated the same day 03/09/2014. HISTORY / INDICATION: Mass in the subareolar right breast. TECHNIQUE AND FINDINGS: Preprocedure images were reviewed. Hospital timeout procedure was performed. Informed consent was obtained and documented.The procedure and its risks benefits were discussed with the patient,including, but not limited to, bleeding, infection, nondiagnostic specimen, chest wall injury includingpneumothorax. Biopsy procedure: The hypoechoic lesion in the right breast wasreidentified. The overlying skin was prepped and draped in usual sterilefashion. 5 cc of 1% lidocaine with epinephrine buffered with bicarbonatewas given for local anesthesia at the skin surface. Using sonographic guidance, 15 cc of 1% lidocaine withepinephrine buffered with bicarbonate was given for deeper anesthesia. A 5mm incision was made in the skin with an 11 blade scalpel. Usingsonographic guidance, a 14-gauge core biopsy device was inserted adjacent to the lesion. 2 samples were obtained. Abiopsy clip was then placed via ultrasound guidance and the device wasremoved from the breast. Firm pressure was held until bleeding stopped. The patient was then transferred to the mammographic suite and acraniocaudal and mediolateral projection of the right breast wereobtained. The clip migrated slightly from the deployment site, located 1.5cm lateral to the biopsy site. Firm pressure was then held for 10 minutes, and the biopsy site redressed. The patient wasdischarged from the breast imaging center in stable condition. Blood losswas minimal. The attending physician, Dr. Marianela Walker, was present for the entireprocedure. IMPRESSION IMPRESSION: Technically successful ultrasound guided core biopsy of the right breast.Please see pathology report for pathologic analysis. I, Dr. MARIANELA WALKER M.D. have personally reviewed and interpreted thisexamination/study. This report was electronically signed by MARIANELA WALKER M.D. on03/09/2014 4:18 PM . ADDENDUM #1 Padmaja Ramos MD ORDERABLES documented in this encounter Visit Diagnoses Diagnosis Abnormal mammogram Abnormal mammogram, unspecified documented in this encounter Care Teams Management Professionals Relationship Specialty Start Date End Date Angelica Hearn MD [address] [place] [phone] PCP - General 03/03/14 documented as of this encounter
--- OUTSIDE RECORDS SUMMARY | 2024-02-03 06:46 | XMS_ITS | Encounter Summary ---
Author Organization [facility] Address [address] [place] [address] Care Team Providers Care Clinical Psychology Professor Name Role Phone Unavailable Primary Care Provider Unavailabl e Encounter Details Date Type Department Care Team (Late st Contact Info) Description 03/02/2023 External Device Data [facility] ABSTRACTION Provider, Abstract [...]
--- OUTSIDE RECORDS SUMMARY | 2024-02-03 06:46 | XMS_ITS | Clinical Summary ---
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 Gender Identity Not on file Sexual Orientation Not on file Obstetrics History Last Filed Vital Signs Vital Sign Reading Time Taken Comments Blood Pressure - - Pulse - - Temperature - - Respiratory Rate - - Oxygen Saturation - - Inhaled Oxygen Concentration - - Weight 55.3 kg (122 lb) 06/30/2022 8:39 AM CDT Height 175.3 cm (5' 9 ) 06/30/2022 8:39 AM CDT Body Mass Index 18.02 06/30/2022 8:39 AM CDT Plan of Treatment Health Maintenance Due Date Last Done Comments Breast Cancer Screening-Mammogram 1973 Cervical Cancer Screening 1973 Colon Cancer Screening-Colonoscopy 1973 Depression Screening 1973 Hepatitis C Screening 1973 Hepatitis B Screening 1991 Regular Well Visit/Exam 18-64 1991 Zoster Vaccine (1 of 2) 2023 Covid-19 Vaccine ( season) 2023 02/08/2021, 06/01/2020, 05/10/2020 Influenza Vaccine (#1) 2023 2, 12/13/2020, 01/20/2019, Additional history exists DTaP/Tdap/Td Vaccine (2 - Td or Tdap) 10/19/2027 10/18/2017 Pneumococcal vaccine <65 Aged Out No longer eligible based on patient's [place] [id number] [facility] Care Teams Cell Repairer Relationship Specialty Start Date End Date Angelica Hearn MD [address] [place] [address] [address] PCP - General Family Medicine 05/03/22
--- OUTSIDE RECORDS SUMMARY | 2024-02-03 06:46 | XMS_ITS | Encounter Summary ---
Author Organization [facility] Address [address] [place] [address] Care Team Providers Care Canvas Baster Jumpbasting Name Role Phone Unavailable Primary Care Provider Unavailabl e Encounter Details Date Type Department Care Team (Late st Contact Info) Description 11/20/2023 External Device Data [facility] ABSTRACTION Provider, Abstract [...]
--- OUTSIDE RECORDS SUMMARY | 2024-02-03 06:46 | XMS_ITS | Encounter Summary ---
Author Organization [facility] Address [address] [facility] [place] [address] Care Team Providers Care Contract Engineer Name Role Phone Angelica Hearn MD Primary Care Provider [phone] Reason for Visit * Reason Comments Establish Care New patient/ interve rtebral disc degeneration * Consult, Test & Treat (Routine) - Closed Specialty Diagnoses / Procedures Referred By Contac t Referred To Contact Neurological Surgery Diagnoses Other intervertebral disc degeneration, lumbar region Angelica Hearn MD [address] [place] [address] [place] [id number] Edward Odom MD [address] [place] [address] [address] [place] [address] Referral ID Status Reason Start Date Expiration Date Visits Re quested Visits Authorized [id number] Closed 07/06/2021 07/06/2022 1 1 Encounter Details Date Type Department Care Team (Late st Contact Info) Description 07/12/2021 9:30 AM CDT Office Visit [facility] [address] [place] [address], [place] [phone] Edward Odom MD [address] [place] [address] [address] [place] [address] Acute bilateral low back pain without sciatica (Primary Dx) Social History Tobacco Use Types Packs/Day Years [...] Mass Index 17.43 07/12/2021 9:29 AM CDT documented in this encounter Patient Instructions * Patient Instructions* Silvia Leonardo - 07/12/2021 10:07 AM CDT Follow up with pain management for injections Follow up with physical therapy For any questions please call Silvia [phone] documented in this encounter Progress Notes * Kayla Horowitz APRN-CNP - 07/12/2021 9:53 AM CDT Neurosurgery Clinic Progress Note Chief Complaint (CC): Low back pain HISTORY OF PRESENT ILLNESS (HPI): Patient is a 46 year old female with no significant past medical, who presents to clinic today for evaluation of low back pain. The patient slipped and fell on ice in March 2021 and caught herselfpreventing a fall. Since then, she has had chronic axial low back pain that is worse on the right side. Initially her pain would radiate into her the anterior aspect of her left thigh, but has since resolved. She denies any pain that radiates into her lower extremities, but did have an incident yesterday where she had numbness in both of her legs. Patient denies any bowel/bladder incontinence or gait changes. She has tried to manage her symptoms with 6 weeks of physical therapy, ice and heat pads, and soaking in a hot bath with minimal improvement. Patient does get some relief from NSAIDs andnorco but pain always returns. PMH: No past medical history on file. PSH: Past Surgical History: Procedure Laterality Date ??? HX STERILIZATION ??? Meniscectomy Right 2020 ??? TUBAL LIGATION, LAPAROSCOPIC 1999 Meds: Current Outpatient Medications Medication ??? busPIRone (BUSPAR) 15 MG tablet ??? diclofenac sodium EC (VOLTAREN) 75 MG tablet ??? HYDROcodone-acetaminophen (NORCO) 10-325 MG tablet ??? lidocaine PF 0.5% (XYLOCAINE) 0.5 % injection ??? medroxyPROGESTERone (PROVERA) 10 MG tablet ??? traZODone (DESYREL) 100 MG tablet ??? triamcinolone acetonide (KENALOG) injection ??? vitamin D, ergocalciferol, (DRISDOL) 1.25 MG (85369 UT) capsule No current facility-administered medications for this visit. Allergies No Known Allergies Social: Social History Tobacco Use ??? Smoking status: Never Smoker ??? Smokeless tobacco: Never Used Substance Use Topics ??? Alcohol use: Never Family: Family History Problem Relation Name Age of Onset ??? Cancer Paternal Aunt ##PAunt1 Paternal aunt x 2 with breast cancer ??? Cancer Paternal Uncle ##PUnc1 Prostate Cancer REVIEW OF SYSTEMS Constitutional: Negative Eyes: Negative Ears, nose, mouth, throat, and face: Negative Respiratory: Negative Cardiovascular: Negative Gastrointestinal: Negative Genitourinary:negative Integument/breast: negative Hematologic/lymphatic: Negative Musculoskeletal:Positive for back pain Neurological: Positive for numbness or tingling both leg(s) PHYSICAL EXAM BP 145/91 (BP SITE: LEFT ARM, BP POSITION: SITTING, BP CUFF SIZE: 11) Pulse 65 Temp 98 ??F (36.7 ??C) (Temporal) Resp 18 Ht 5' 9 (1.753 m) Wt 118 lb (53.5 kg) SpO2 100% BMI 17.43 kg/m2 General: No acute distress. HEENT: pupils equal and reactive to light, extra-occular muscles intact, face symmetric, tongue midline. Cardiovascular: warm, well profused Respiratory: non-labored breathing Integument: no lesions found. Neuro: Mental status: Alert, attentive, and oriented x3 (name, place, date). Speech is clear and fluent. Motor: Muscle bulk and tone are normal. 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 No obvious coronal or sagittal imbalance. No leg length discrepancy. Heel and toe walking are normal. Special Test: Straight leg raise negative PHYSICAL THERAPY: Patient has completed 6 weeks of physical therapy within the last 3 months. RADIOLOGY: 06/20/2021: MRI LUMBAR SPINE WO CONTRAST: FINDINGS: Vertebral bodies: No evidence of a fracture or destructive process pre-dilated a preservation of marrow signal intensity. Mild multilevel degenerative changes. No acute process. Conus medullaris: T12 Disc spaces: Degenerative disc desiccation signal intensity Paravertebral soft tissues: Unremarkable Vasculature: No aneurysm T12-L1: Otherwise unremarkable L1-2: No evidence of central or neural foraminal stenosis. L2-3: Otherwise unremarkable L3-4: Posterior facet hypertrophic changes without central or neural foraminal stenosis. L4-5: Bilateral facet hypertrophic changes and mild bulging of the degenerate annulus are present resulting in moderate central spinal stenosis, and moderate bilateral neural foraminal stenosis. There is a small left foraminal disc protrusion resulting in moderate left neural foraminal stenosis and severe left preforaminal stenosis. L5-S1: Mild to moderate diffuse bulging degenerate annulus with evidence of an annular tear measuring 10 mm length. Bilateral facet hypertrophic changes are noted. The disc protrusion extends into the left neural foramen the net result is moderate to severe left neural foraminal stenosis, severe left preforaminal stenosis and moderate central spinal stenosis. IMPRESSION: See above. Assessment/Plan: Ashtyn Machuca is a 46 year old female with no significant past medical, who presents to clinic today for evaluation of low back pain. The patient describes chronic axial low back pain that is worse on the right side since March of 2021. She denies any radicular pain, gait changes, or significant numbness in her extremities. MRI lumbar spine from 06/20/2021 shows mild degenerative changes with small disc bulge at L4/5 and L5/S1 with mild central canal stenosis, and some foraminal stenosis. Patient has no focal deficits on exam and no evidence of radiculopathy. It is not felt that patient would benefit from surgical intervention on lumbar spine. We will refer the patient to pain managementfor possible injections. Patient to follow up with Neurosurgery as needed. BRYANNA Alvarez 07/12/2021 10:12 AM documented in this encounter Plan of Treatment Not on file documented as of this encounter Visit Diagnoses Diagnosis Acute bilateral low back pain without sciatica- Primary documented in this encounter Care Teams Contract Engineer Relationship Specialty Start Date End Date Angelica Hearn MD [address] [place] [id number] PCP - General 03/03/14 documented as of this encounter
--- OUTSIDE RECORDS SUMMARY | 2024-02-03 06:46 | XMS_ITS | Encounter Summary ---
Author Organization [facility] Address [address] [place] [address] Care Team Providers Care Dental Equipment Repairer Name Role Phone Unavailable Primary Care Provider Unavailabl e Encounter Details Date Type Department Care Team (Late st Contact Info) Description 03/03/2023 External Device Data [facility] ABSTRACTION Provider, Abstract [...]
--- OUTSIDE RECORDS SUMMARY | 2024-02-03 06:46 | XMS_ITS | Encounter Summary ---
Author Organization [facility] Address [address] [place] [address] Care Team Providers Care Weigher Operator Name Role Phone Unavailable Primary Care Provider Unavailabl e Encounter Details Date Type Department Care Team (Late st Contact Info) Description 09/27/2023 External Device Data ST[facility] ABSTRACTION Provider, Abstract [...]
--- OUTSIDE RECORDS SUMMARY | 2024-02-03 06:46 | XMS_ITS | Continuity of Care Document ---
Author Organization [facility] Address [address] [address] [place] [address] Phone Care Team Providers Care Arc Welder Name Role Phone Jonathan Moses MD Unavailable Unavailable Allergies, Adverse Reactions, Alerts Substance Reaction Status Criticality No Known Allergies Active No Inform ation Medications Medication Instructions Dosage Effective Dates (start - stop) Status Comments [place] 7.5 mg-325 mg tablet take 1 tablet by oral route 3 times every day as needed for pain 1 tablet - Active avoid driving or operaet machines Klonopin 1 mg tablet take 1 tablet by oral route 3 times every day as needed 1 MG - Active avoid drivin g or operate machines Procedures Procedure Date PREV VISIT, NEW, AGE 40-64 Advance Directives Directive Yes / No Effective Date File Name No Information Encounters Encounter Description Practice Location Reason(s) For Visit Diagnoses Date Provider Providers Copied on Encounter [facility], [address] [employer] [place], [address], tel:[phone] [facility] No Information Josué Castillo. [address] [employer] [facility] [place], [address]. tel:[phone] PREV VISIT, NEW, AGE 40-64 [facility], [address] [place], [address], [place] tel:[phone] [facility] Medicine PHysical (chief complaint) Encntr for general adult medical exam w/o abnormal findings Josué Castillo. [address], [address], [facility] [address]. tel:[phone] Family History Family Member Type Diagnosis Age At Onset Brother Problem (finding) Alive and well Mother Problem (finding) Diabetes mellitus type 2 Father Problem (finding) Alive and well Payers Payer name Insurance type Covered republican ID Authorscar tichristen(s) No Information Social History Type Description Quantity Date Captured Comments Alcohol Use Details Unknown Caffeine Use Details Unknown Tobacco Use Status No Information Smoking Status No Information Sex Female Chief Complaint And Reason For Visit No Information Plan Of Treatment Date Type Action Status No Information History Of Present Illness Encounter Date Complaint History Of Prese nt Illness PHysical Pt needs annual physical. Pt has chronic left shoulder and right knee pain. pt has chronic left tendonitis left shoulder. pt is seeing ortho and getting injection. Pt also has chronic right knee pain. Pt has miniscus tear and also chondromalacia. Pt is taking 80 norco per month. Pt unable to do surgery now due to work schedule. Pt also has chronic anxiety. Pt denies any depression or any suicidal thought. Pt denies any cyring spells. Pt takes klonpin PRN and on average TID. Pt failed SSRIs. Pt states that she has a lot of stress at home. Pt doing ok with current meds. Pt denies any other complaints Instructions Date Instruction Additional Infor javon Perform monthly self breast examinations. Related to Encntr for general adult medical exam w/o abnormal findings Perform monthly self breast examinations. Related to Encntr for general adult medical exam w/o abnormal findings Increase activity. Related to En cntr for general adult medical exam w/o abnormal findings Quit smoking. Related to Encnt r for general adult medical exam w/o abnormal findings Increase activity. Related to En cntr for general adult medical exam w/o abnormal findings Assessments Type Assessment Date No Information
--- OUTSIDE RECORDS SUMMARY | 2024-02-03 06:46 | XMS_ITS | Referral Summary ---
Author Organization [facility] Address [address] [place] [address] Care Team Providers Care Mail Order Biller Name Role Phone Angelica Hearn MD Primary Care Provider [phone] [facility],non-owned Affiliates and Associated Physician Practices is amultiple site organization consisting of ambulatory clinics and hospital sitesin [place], [place], [place] and [place]. This disclosure is being madepursuant to the Care Everywhere program and may not contain all information available regarding this patient. Last updated 17.[facility] Allergies No known active allergies Medications * Be aware that medications may not be up to date on this document. Alwaysverify current medications with the patient. Medication Sig Dispensed Refills Start Date End Date Status traZODone (DESYREL) 100 MG tablet 04/25/2021 Active busPIRone (BUSPAR) 15 MG tablet 06/07/2021 Active vitamin D, ergocalciferol, (DRISDOL) 1.25 MG (79574 UT) capsule 06/27/2021 Active HYDROcodone-acetami nophen (NORCO) [...] findings on diagnostic imaging of breast 03/09/2014 Social History Tobacco Use Types Packs/Day Years [...] 07/12/2021 9:29 AM CDT Plan of Treatment Not on file Procedures Procedure Name Priority Date/Time Associated Diagnosis Comments MAMMO RIGHT DIAGNOSTIC Routine 03/09/2014 11:33 AM BAND AND CUFF CUTTER from Last 3 Months or Most Recently Relevant to Health Maintenance Results * MAMMO RIGHT DIAGNOSTIC (03/09/2014 11:33 AM BAND AND CUFF CUTTER) Anatomical Region Laterality Modality Right Other Impressions 03/09/2014 4:17 PM BAND AND CUFF CUTTER IMPRESSION: Mass with internal calcification in the slightly lower outer subareolar right breast. Recommend biopsy. BI-RADS category 4B, intermediate suspicious findings. I, Dr. MARIANELA WALKER M.D. have personally reviewed and interpreted this examination/study. This report was electronically signed by MARIANELA WALKER M.D. ??on 03/09/2014 4:17 PM . Narrative 03/09/2014 4:17 PM BAND AND CUFF CUTTER Right diagnostic mammography. Targeted right breast ultrasound. [...] Recently Relevant to Health Maintenance Care Teams Mail Order Biller Relationship Specialty Start Date End Date Angelica Hearn MD [address] [place] [address] RYDER Gonzalez [phone] PCP - General 03/03/14
--- OUTSIDE RECORDS SUMMARY | 2024-02-03 06:46 | XMS_ITS | Patient Health Summary ---
Author Organization [facility] Address [address] [place] [address] Care Team Providers Care Protector Plate Attacher Name Role Phone Angelica Hearn MD Primary Care Provider [phone] Note from [facility],non-owned Affiliates and Associated Physician Practices is amultiple site organization consisting of ambulatory clinics and hospital sitesin [place], [place], [place] and [place]. This disclosure is being madepursuant to the Care Everywhere program and may not contain all information available regarding this patient. Last updated 17.[facility] [employer] Allergies No known active allergies Medications * Be aware that medications may not be up to date on this document. Alwaysverify current medications with the patient. * traZODone (DESYREL) 100 MG tablet(Started 04/25/2021) * busPIRone (BUSPAR) 15 MG tablet(Started 06/07/2021) * vitamin D, ergocalciferol, (DRISDOL) 1.25 MG (68273 UT) capsule(Started 06/27/2021) * HYDROcodone-acetaminophen (NORCO) 10-325 MG tablet hydrocodone 10 mg-acetaminophen 325 mg tablet TAKE 1 TABLET EVERY 4 HOURS BY ORAL ROUTE * diclofenac sodium EC (VOLTAREN) 75 MG tablet(Started 04/11/2021) * medroxyPROGESTERone (PROVERA) 10 MG tablet(Started 02/28/2021) * lidocaine PF 0.5% (XYLOCAINE) 0.5 % injection 30 mg * triamcinolone acetonide (KENALOG) injection Kenalog 10 mg/mL suspension for injection In office injection administered by the provider Active Problems Problem Noted Date Diagnosed Date [...] Mass Index 17.43 07/12/2021 9:29 AM CDT Procedures * PATHOLOGY TISSUE(Performed 03/09/2014) * US BREAST BIOPSY(Performed 03/09/2014) * BREAST UNILATERAL LTD(Performed 03/09/2014) * MAMMO RIGHT DIAGNOSTIC(Performed 03/09/2014) Results * PATHOLOGY TISSUE (03/09/2014 2:45 PM CIVILIAN TECHNICIAN) Surgical Pathology Tissue CLINICAL HISTORY: There is [...] were determined by the [facility] of [facility].?? Some of these tests were developed by [...] by Enid Blackburn MD. Electronically signed 03/11/2014 [facility] Other (qualifier value) 03/09/2014 2:45 PM CIVILIAN TECHNICIAN 03/09/2014 4:14 PM CIVILIAN TECHNICIAN Narrative [facility] - 03/11/2014 1:54 PM CIVILIAN TECHNICIAN Collection Date->03/09/14 Collection Time-> 2:00 PM Specimen A->Breast, Right Lower Outer Mayte Walker MD LAB - PATHOLOGY/C YTOLOGY ORDERABLES [facility] * US BREAST BIOPSY (03/09/2014 2:30 PM CIVILIAN TECHNICIAN) Anatomical Region Laterality Modality Other Addenda Addendum by Mayte Walker MD on 03/11/2014 3:40 PM CIVILIAN TECHNICIAN Biopsy addendum: Final pathology reveals pseudo angiomatosis [...] Mayte Walker MD on 03/11/2014 3:40 PM CIVILIAN TECHNICIAN Biopsy addendum: Final pathology reveals pseudo angiomatosis [...] 3:40 PM . Impressions 03/11/2014 3:40 PM CIVILIAN TECHNICIAN IMPRESSION: Technically successful ultrasound guided core biopsy of the right breast. Please see pathology report for pathologic analysis. I, Dr. MARIANELA WALKER M.D. have personally reviewed and interpreted this examination/study. This report was electronically signed by MARIANELA WALKER M.D. ??on 03/09/2014 4:18 PM . ADDENDUM #1 Narrative 03/11/2014 3:40 PM CIVILIAN TECHNICIAN ORIGINAL REPORT Ultrasound guided core biopsy of [...] breast.Please see pathology report for pathologic analysis. Dr. MARIANELA Arrington M.D. have personally reviewed and interpreted thisexamination/study. This report was electronically signed by MARIANELA WALKER M.D. on03/09/2014 4:18 PM . ADDENDUM #1 Padmaja Ramos MD US ORDERABLES * US BREAST UNILATERAL LTD (03/09/2014 11:40 AM CIVILIAN TECHNICIAN) Anatomical Region Laterality Modality Other Impressions 03/09/2014 4:17 PM CIVILIAN TECHNICIAN IMPRESSION: Mass with internal calcification in the slightly lower outer subareolar right breast. Recommend biopsy. BI-RADS category 4B, intermediate suspicious findings. Dr. MARIANELA Arrington M.D. have personally reviewed and interpreted this examination/study. This report was electronically signed by MARIANELA WALKER M.D. ??on 03/09/2014 4:17 PM . Narrative 03/09/2014 4:17 PM CIVILIAN TECHNICIAN Right diagnostic mammography. Targeted right breast ultrasound. [...] * MAMMO RIGHT DIAGNOSTIC (03/09/2014 11:33 AM CIVILIAN TECHNICIAN) Anatomical Region Laterality Modality Right Other Impressions 03/09/2014 4:17 PM CIVILIAN TECHNICIAN IMPRESSION: Mass with internal calcification in the slightly lower outer subareolar right breast. Recommend biopsy. BI-RADS category 4B, intermediate suspicious findings. I, Dr. MARIANELA WALKER M.D. have personally reviewed and interpreted this examination/study. This report was electronically signed by MARIANELA WALKER M.D. ??on 03/09/2014 4:17 PM . Narrative 03/09/2014 4:17 PM CIVILIAN TECHNICIAN Right diagnostic mammography. Targeted right breast ultrasound. [...] PM . Padmaja Ramos MD MAMMO ORDERABLES Care Teams Protector Plate Attacher Relationship Specialty Start Date End Date Angelica Hearn MD [address] [place] [phone] PCP - General 03/03/14
--- OUTSIDE RECORDS SUMMARY | 2024-02-03 06:46 | XMS_ITS | Clinical Summary ---
Author Organization [facility] Address [address] [address] Care Team Providers Care Ripshear Operator Name Role Phone Unavailable Primary Care Provider Unavailabl e Medications Medication Sig Dispensed Refills Start Date End Date Status HYDROcodone-acetamino phen (NORCO) 10-325 mg Tablet Take 1 Tablet by mouth every 6 hours. MUST LAST 30 DAYS 90 Tablet 02/20/2023 Active Encounters Date Type Department Care Team Description 11/20/2023 External Device Data [facility] ABSTRACTION Provider, Abstract from Last 3 Months Social History Tobacco Use Types Packs/Day Years Used Date Smoking Tobacco: Never Assessed Sex and Gender Information Value Date Recorded Sex Assigned at Not on file Gender Identity Not on file Sexual Orientation Not on file Plan of Treatment Health Maintenance Due Date Last Done Comments DTAP/TDAP/TD VACCINES (1 - Tdap) 01/17/1992 HEPATITIS B VACCINES (1 of 3 - 19+ 3-dose series) 01/17/1992 CERVICAL CANCER SCREENING 2003 BREAST CANCER SCREENING 2013 COLORECTAL SCREENING 2018 Colorectal Cancer Screening 2018 FIT-DNA Q 3 years 2018 FIT/FOBT Q 1 year 2018 Flex Sig/CT Colonography Q 5 years 2018 ZOSTER VACCINE (1 of 2) 2023 INFLUENZA VACCINE (#1) 2023 PNEUMOCOCCAL VACCINE 0-64 YEARS Aged Out No longer eligible based on patient's age to complete this topic
--- OUTSIDE RECORDS SUMMARY | 2024-02-03 06:46 | XMS_ITS | Continuity of Care Document ---
Author Organization [facility] Address [address] [place] [address] [address] [place] [address] Phone Care Team Providers Care Civil Cadd Technician Name Role Phone Esther Coleman Unavailable Unavailable Procedures Procedure Date Eye Exam, New Patient Advance Directives Directive Yes / No Effective Date File Name No Information Encounters Encounter Description Practice Location Reason(s) For Visit Diagnoses Date Provider Providers Copied on Encounter [facility], [address] [place] [address] [address], [place], [place], [id number], [place] tel:[phone] [facility] No Information [address] [place] [address]. [address] [facility] , [address], [place], [place], [facility], [place]. tel:[phone] Referring Provider: Madelyn Astorga [address], [place], [place], [facility]. tel:[phone] Family History Family Member Type Diagnosis Age At Onset No Information Payers Payer name Insurance type Covered alliance party ID Authoriza tichristen(s) Medicaid [facility] [id number] Social History Type Description Quantity Date Captured Comments Sex Female Smoking Status No Information Chief Complaint And Reason For Visit No Information Reason For Referral Reason For Referral No Information History Of Present Illness Encounter Date Complaint History Of Prese nt Illness No Information Functional Status Date Functional Assessmen t No Information Instructions Date Instruction Additional Infor mation No Information Assessments Type Assessment Date No Information Patient Care Teams Name Effective Dates (start - stop) Status Members No Information
--- OUTSIDE RECORDS SUMMARY | 2024-02-03 06:46 | XMS_ITS | Data Portability ---
Author Organization [facility], Main Office Address [address] [place] [address] Care Team Providers Care Call Or Contact Centre Operator Name Role Phone SYEDA HEARN Primary Care Provider [phone] SYEDA HEARN Referring Provider Assessment Encounter Date Assessment Date Assessment LastModified by Organization Details LastModified Time 2023 2023 Patient has chronic tendinitis and impingement of the left shoulder shot of cortisone have given her great relief in the past. She only takes Tylenol currently for pain I have advised her to try Advil or Aleve sexi-urd-paparqb for now when her shot wears off. We could do a prescription if she needed this. In the meantime we will get an MRI scan of the shoulder today's x-rays are fairly unremarkable there is some downward sloping of the acromion otherwise shoulder looks pretty good we will get an MRI to better assess the source of her pain. The patient voiced understanding agrees above plan I will see her back after the MRI is done she will call for any further problems difficulties or questions. The patient has failed a long course of conservative measures including cortisone therapy and anti-inflammator ies over the years. Patient does have a history of some neck pain Dr. Dc at 1 point thought maybe she had some radiculopathy although she does not appear to have any neck pain or radiculopathy type symptoms today. [email or web address] Not available 2023 10:10:14 Plan of Treatment Reminders Order Date Submit Date Provider Last Modified By Organization Details Last Modified Time Details Appointments None recorded. Lab None recorded. Referral None recorded. Procedures injection/a spiration joint/bursa (PROC) 2022 023 [email or web address] In-Office Order, Internal Use Only DO Not Attach Compendium DO Not Attach Compendium, Do Not Delete/merge, [address] 3 09:21:54 Surgeries None recorded. Imaging XR, shoulder 2022 023 [email or web address] [facility] [place], [facility], [place], [address], 3 10:51:07 MRI, shoulder, w/o contrast 2022 023 [email or web address] [facility], [address] [place] [address], [place], [address], 3 13:53:24 Medication Orders bupivacaine HCl 0.5 % (5 mg/mL) injection solution 2022 023 [email or web address] [facility], [address] [place], [address], 3 09:23:38 Kenalog 10 mg/mL suspension for injection 2022 023 [id number] [facility], [address] [place], [address], 4 04:12:48 ergocalcife rol (vitamin D2) 1,250 mcg (50,000 unit) capsule 2023 024 [place] [facility], [address] [place], [address], 4 16:05:56 trazodone 100 mg tablet 2023 024 [place] [facility], [address] [place], [address], 4 16:05:56 Patient TargetsNo targets recorded. Patient InstructionsNo instructions recorded. Reason for Referral None Reported. Results Created Date Observation Date Name Description Value Unit Range Abnormal Flag Note LastModifiedBy Organization Detail LastModifiedTime 03/06/1928 0203/06/2023 URINA LYSIS COMPL ETE/I RIS W/RFX color YELLOW Not Available [facility] (Lab) [address] [place], [address], 03/06/2023 20:39:44 03/06/19 24 03/06/2023 URINA LYSIS COMPL ETE/I RIS W/RFX appear TURBID abnormal Not Available [facility] (Lab) [address] [place], [address], 03/06/2023 20:39:44 03/06/19 24 03/06/2023 URINA LYSIS COMPL ETE/I RIS W/RFX specific gravity 1.022 1.001- 1.030 Not Available [facility] (Lab) [address] [place], [address], 03/06/2023 20:39:44 03/06/19 24 03/06/2023 URINA LYSIS COMPL ETE/I RIS W/RFX pH 6.5 pH_un its 5.0-9. 0 Not Available [facility] (Lab) [address] [place], [address], 03/06/2023 20:39:44 03/06/19 24 03/06/2023 URINA LYSIS COMPL ETE/I RIS W/RFX leukocytes 250 kevin/u L negati ve- abnormal Not Available [facility] (Lab) [address] [place], [address], 03/06/2023 20:39:44 03/06/19 24 03/06/2023 URINA LYSIS COMPL ETE/I RIS W/RFX nitrite NEGATI VE negati ve- Not Available [facility] (Lab) [address] [place], [address], 03/06/2023 20:39:44 03/06/19 24 03/06/2023 URINA LYSIS COMPL ETE/I RIS W/RFX protein 20 mg/dL negati ve- abnormal Not Available [facility] (Lab) [address] [place], [address], 03/06/2023 20:39:44 03/06/19 24 03/06/2023 URINA LYSIS COMPL ETE/I RIS W/RFX glucose NORMAL mg/dL normal - Not Available [facility] (Lab) [address] [place], [address], 03/06/2023 20:39:44 03/06/19 24 03/06/2023 URINA LYSIS COMPL ETE/I RIS W/RFX ketones NEGATI VE mg/dL negati ve- Not Available [facility] (Lab) [address] [place], [address], 03/06/2023 20:39:44 03/06/19 24 03/06/2023 URINA LYSIS COMPL ETE/I RIS W/RFX urobilinogen NORMAL mg/dL normal - Not Available [facility] (Lab) [address] [place], [address], 03/06/2023 20:39:44 03/06/19 24 03/06/2023 URINA LYSIS COMPL ETE/I RIS W/RFX bilirubin NEGATI VE mg/dL negati ve- Not Available [facility] (Lab) [address] [place], [address], 03/06/2023 20:39:44 03/06/19 24 03/06/2023 URINA LYSIS COMPL ETE/I RIS W/RFX blood NEGATI VE mg/dL negati ve- Not Available [facility] (Lab) [address] [place], [address], 03/06/2023 20:39:44 03/06/19 24 03/06/2023 URINA LYSIS COMPL ETE/I RIS W/RFX white blood cells 41-60 /i??h pfi?? 0-8 abnormal Not Available [facility] (Lab) [address] [place], [address], 03/06/2023 20:39:44 03/06/19 24 03/06/2023 URINA LYSIS COMPL ETE/I RIS W/RFX red blood cells 5-10 /i??h pfi?? 0-4 abnormal Not Available [facility] (Lab) [address] [place], [address], 03/06/2023 20:39:44 03/06/19 24 03/06/2023 URINA LYSIS COMPL ETE/I RIS W/RFX bacteria NONE Not Available [facility] (Lab) [address] [place], [address], 03/06/2023 20:39:44 03/06/19 24 03/06/2023 URINA LYSIS COMPL ETE/I RIS W/RFX mucous OCCASI ONAL /i??l pfi?? abnormal Not Available [facility] (Lab) [address] [place], [address], 03/06/2023 20:39:44 03/06/19 24 03/06/2023 URINA LYSIS COMPL ETE/I RIS W/RFX squamous epithelial MANY /i??l pfi?? abnormal Not Available [facility] (Lab) [address] [place], [address], 03/06/2023 20:39:44 03/06/19 24 03/06/2023 URINA LYSIS COMPL ETE/I RIS W/RFX hyaline cast OCCASI ONAL /i??l pfi?? none seen- abnormal Not Available [facility] (Lab) [address] [place], [address], 03/06/2023 20:39:44 03/06/19 24 03/06/2023 URINA LYSIS COMPL ETE/I RIS W/RFX budding yeast FEW /i??h pfi?? abnormal Not Available [facility] (Lab) [address], [place], [address], 03/06/2023 20:39:44 03/06/19 24 03/06/2023 urina lysis , dipst ick Leukocytes (reference range: negative kevin/? ? ?l) Small Not Available [address], [place], [address], 03/06/2023 15:33:21 03/06/19 24 03/06/2023 urina lysis , dipst ick Nitrite (reference rage: negative mg/dl) negati ve Not Available [address], [place], [address], 03/06/2023 15:33:21 03/06/19 24 03/06/2023 urina lysis , dipst ick Urobilinogen (reference range: 0.2-1 mg/dl) 1 Not Available [address], [place], [address], 03/06/2023 15:33:21 03/06/19 24 03/06/2023 urina lysis , dipst ick Protein (reference range: negative mg/dl) Small Not Available [address], [place], [address], 03/06/2023 15:33:21 03/06/19 24 03/06/2023 urina lysis , dipst ick pH (reference range: 5-7) 7.0 Not Available [address], [place], [address], 03/06/2023 15:33:21 03/06/19 24 03/06/2023 urina lysis , dipst ick Blood (reference range: negative David/? ? ?l) Negati ve Not Available [address], [place], [address], 03/06/2023 15:33:21 03/06/19 24 03/06/2023 urina lysis , dipst ick Specific Naches (reference range: 1.005-1.030) 1.020 Not Available [address], [place], [address], 03/06/2023 15:33:21 03/06/19 24 03/06/2023 urina lysis , dipst ick Ketone (reference range: negative mg/dl) Negati ve Not Available [address], [place], [address], 03/06/2023 15:33:21 03/06/19 24 03/06/2023 urina lysis , dipst ick Bilirubin (reference range: negative mg/dl) Negati ve Not Available [address], [place], [address], 03/06/2023 15:33:21 03/06/19 24 03/06/2023 urina lysis , dipst ick Glucose (reference range: negative mg/dl) Negati ve Not Available [address], [place], [address], 03/06/2023 15:33:21 03/06/19 24 03/06/2023 urina lysis , dipst ick Appearance Slight ly Cloudy Not Available [address], [place], [address], 03/06/2023 15:33:21 03/06/19 24 03/06/2023 urina lysis , dipst ick Color Dark Yellow Not Available [address], [place], [address], 03/06/2023 15:33:21 01/17/20 23 XR, shoul ximena No observ ation record ed. [email or web address] [facility] [place] [address] [facility], [place], [address], 2023 10:09:36 08/17/19 24 08/17/2023 MAMMO , scree mihai, digit al, bilat eral No observ ation record ed. [email or web address] [facility] [address], [place], [address], 09/05/2023 17:39:19 Result Notes None recorded. Problems Name Problem SNOMED Code Status Onset Date Resolution Date Notes Provider Name and Address Organization Details Recorded Time Disorder of shoulder 273307351 Active Not Available [facility] 3 02:48:04 Chondroma lacia of right patella 19933719141 070767 Active 2022 Not Available [facility] 3 02:48:04 Tendiniti s of left rotator cuff 28038769460 170873 Active 2022 Not Available [facility] 3 02:48:04 Localized , primary osteoarth ritis of the shoulder region 995042376 Active Not Available [facility] 3 02:48:04 Underweig ht 157111882 Active Not Available [facility] 3 02:48:04 Shoulder joint pain 145791157 Active Not Available [facility] 3 02:48:04 Acute meniscal tear, medial 991677536 Active 2018 Not Available [facility] 3 02:48:04 Tear of medial meniscus of knee 360525749 Active 2019 Not Available [facility] 3 02:48:04 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 73833581 Active Not Available [facility] 3 02:48:04 Current tear of medial cartilage AND/OR meniscus of knee Active Not Available [facility] 3 02:48:04 Impingeme nt syndrome of left shoulder region 23762981845 9104 Active 2022 Not Available [facility] 3 02:48:04 Hyperhidr osis 941421884 Active Not Available [facility] 3 02:48:04 Restless legs 20887753 Active Not Available [facility] 3 02:48:04 Inflammat ion of rotator cuff tendon 756449978 Active Not Available [facility] 3 02:48:05 Shoulder pain 87319880 Active Not Available [facility] 3 02:48:05 Pain of right knee joint 52576225828 4100 Active 2022 Not Available [facility] 3 02:48:05 Upper respirato ry infection 42951440 Active Not Available [facility] 3 02:48:05 Disorder of bursa of shoulder region 26837438 Active Not Available [facility] 3 02:48:05 Polyp of colon 43863598 Active 2020 colonosco py 08/23/20 repeat 5 years Not Available [facility] 3 02:48:05 Urinary tract infectiou s disease 37305028 Active Not Available [facility] 3 02:48:05 Inflammat ory dermatosi s 961921539 Active Not Available [facility] 3 02:48:05 Brachial neuritis 85888327 Active Not Available [facility] 3 02:48:05 Neck pain 83593796 Active Not Available [facility] 3 02:48:05 Otalgia of right ear 5785605291 Active 2022 MD [address], [place], [address] , [facility] 3 09:54:53 Pain of left hip joint 51697564685 9100 Active 2022 MD [address], [place], [address] , [facility] 3 09:55:45 Low back pain 118011224 Active 2022 MD [address], [place], [address] , [place] [facility] 3 09:56:33 Cervical radiculop athy 36855247 Active 2022 MEAGHAN Garcia [address], [place], [address] , [place] [facility] 3 11:20:18 Vitamin D deficienc y 13981923 Active 2022 Syeda Hearn MD [address], [place], [address] , [place] [facility] 3 11:03:50 Hypoglyce irene 200480742 Active 2022 Syeda Hearn MD [address], [address], [place], [address] , [place] [facility] 3 11:04:07 Fatigue 21489317 Active 2022 Syeda Hearn MD [address], [place], [address] , [facility] 3 11:05:05 Leukopeni a 10322637 Active 2022 Syeda Hearn MD [address], [address], [place], [address] , [place] [facility] 3 07:52:21 Otalgia of left ear 4323118953 Active 2022 Syeda Hearn MD [address], [place], [address] , [facility] 3 10:44:38 Shoulder pain 26351435 Active 2022 LEATHA Al, [place] [facility] 3 09:20:26 Dysuria 00469950 Active 2023 Syeda Hearn MD [address], [address], [place], [address] , [place] [facility] 4 18:24:38 Urinary symptoms 076527954 Active 2023 Aimee Negrete RN null, [place] [facility] 4 15:33:26 Acute urinary tract infection 915943685 Active 2023 Syeda Hearn MD [address], [place], [address] , [facility] 4 18:13:27 Insomnia 767060511 Active 2023 Syeda Hearn MD [address], [place], [address] , [facility] 4 07:39:10 Lumbar spondylos is 695078648 Active 2023 Marc Morales MD [address] [place] [address], [place], [address] , [facility] 4 12:22:16 Chronic low back pain 831915135 Active 2023 Marc Morales MD [address], [facility] [address], [place], [address] , [facility] 4 12:24:22 Pain of left elbow joint 27251717807 084569 Active 2023 MARY Gonzalez [address] [facility], [place] [address], [place], [address] , [facility] [employer] [facility] 4 16:00:36 Problem Notes None recorded. Procedures Surgical History Date Name Laterality Status Provider Name and Address Organization Details Recorded Time 08/24/19 21 colonoscopy completed Not Available [facility] 04/06/19 02:42:54 02/05/19 21 Date of Last Colonoscopy completed Not Available [facility] 04/05/2022 02:42:49 Tubal Ligation completed Not Available [facility] 04/05/2022 02:42:54 repair of meniscus completed Not Available [facility] 04/05/2022 02:42:54 Imaging Results Imaging Date Name Status LastModified by Organiz ation Details LastModified Time 2023 XR, shoulder completed [email or web address] [facility] [place] [address], [place], [address], 2023 10:09:36 08/17/2023 MAMMO, screening, digital, bilateral completed [email or web address] [facility] [address] [facility], [place], [address], 09/05/2023 17:39:19 Procedure Notes None recorded. Medical Equipment None Reported. Allergies Allergen ID Allergen Name Allergen Category Reaction Reaction Severity Criticality Documentation Date Start Date Code Code System Note Provider Name and Address Organization Details Recorded Time 09937 Provera medicatio n Not available Not available Not available 12/26/2022 47170 8 RxNorm rash Syeda Hearn MD [address] [facility], [place] [address], [place], [address], [facility] 3 10:17:53 96431 estradiol medicatio n Not available Not available Not available 12/26/2022 4083 RxNorm rash Syeda Hearn MD [address] [address], [place], [address], [facility] 3 10:17:47 Medications Name Sig Start Date Stop Date Status Note LastModified by Organization Details LastModified Time cyclobenzap rine 10 mg tablet Take 1 tab po every 12 hrs as needed for back pain active Not Available Not Available No t Available medroxyprog esterone 10 mg tablet 03/07 completed Not Available Not Available Not Available prednisone 10 mg tablet TAKE 1 TAB BY MOUTH THREE TIMES DAILY FOR 3 DAYS, AND THEN TAKE 1 TAB TWICE DAILY FOR 2 DAYS, AND THEN TAKE 1 TAB ONCE DAILY FOR 1 DAY active Not Available Not Available No t Available trazodone 50 mg tablet TAKE ONE TABLET DAILY AT BEDTIME NEEDED INSOMNIA 12/09 completed Not Available Not Available Not Available azithromyci n 250 mg tablet TAKE 2 TABLETS (500 MG) BY ORAL ROUTE ONCE DAILY FOR 1 DAY THEN 1 TABLET (250 MG) BY ORAL ROUTE ONCE DAILY FOR 4 DAYS active Not Available Not Available No t Available fluconazole 150 mg tablet 02/27 completed Not Available Not Available Not Available valacyclovi r 1 gram tablet Take 1 tablet every 8 hours by oral route for 7 days. 09/28 completed Not Available Not Available Not Available medroxyprog esterone 2.5 mg tablet TAKE 1 TABLET BY MOUTH AT BEDTIME 12/20 completed Not Available Not Available Not Available phenazopyri dine 200 mg tablet TAKE 1 TABLET BY MOUTH EVERY 6 TO 8 HOURS NEEDED *MAX 3 TABS/24 HRS PER INSURANCE * active Not Available Not Available No t Available metronidazo le 0.75 % (37.5 mg/5 gram) vaginal gel 03/22 completed Not Available Not Available Not Available bupivacaine HCl 0.5 % (5 mg/mL) injection solution Take 20 mg by injection route. 2022 active Not Available Not Available Not Avai lable prednisone 20 mg tablet 3 po qday x 3 days then 2 po qday x 3 days then 1 po qday x 3 days then 1/2 tab po qday x 3 days then stop active Not Available Not Available No t Available terconazole 0.8 % vaginal cream INSERT 1 APPLICATO RFUL VAGINALLY AT BEDTIME FOR 3 DAYS 02/27 completed Not Available Not Available Not Available clonazepam 1 mg tablet TK 1 T PO TID PRF ANXIETY 12/09 completed Not Available Not Available Not Available sulfamethox azole 800 mg-trimetho prim 160 mg tablet TAKE 1 TABLET EVERY 12 HOURS FOR 7 DAYS 03/19 completed Not Available Not Available Not Available hydrocodone 10 mg-acetamin ophen 325 mg tablet TAKE 1 TABLET EVERY 12 HOURS BY ORAL ROUTE NEEDED. Must last 30 days active Not Available Not Available No t Available tramadol 50 mg tablet Take 1 tablet twice a day by oral route as needed. 10/28 completed Not Available Not Available Not Available triamcinolo ne acetonide 0.1 % topical cream 02/27 completed Not Available Not Available Not Available prednisone 10 mg tablets in a dose pack Take 1 tab by mouth, 3 times a day for 3 daysTake 1 tab by mouth 2 times a day for 2 daysTake 1 tab by mouth once a day for 1 day 04/10 completed Not Available Not Available Not Available meloxicam 7.5 mg tablet TAKE ONE TABLET EVERY 12 HRS NEEDED WITH FOOD active Not Available Not Available No t Available amoxicillin 875 mg tablet Take 1 tablet every 12 hours by oral route for 7 days. active Not Available Not Available No t Available estradiol 1 mg tablet TAKE TABLET BY MOUTH EVERY DAY AT BEDTIME 12/15 completed Not Available Not Available Not Available trazodone 100 mg tablet 1.5 tabs po qhs prn insomnia active Not Available Not Available No t Available Kenalog 10 mg/mL suspension for injection Take 20 mg by injection route. 2022 active [facility]: 0003- 0494- 20 Not Available Not Available Not Available phenazopyri dine 100 mg tablet active Not Available Not Available Not Available doxycycline monohydrate 100 mg capsule TAKE ONE TABLET TWICE DAILY FOR 10 DAYS UNTIL ALL TAKEN 12/09 completed Not Available Not Available Not Available hydrocodone 7.5 mg-acetamin ophen 325 mg tablet Take 1 tablet every 12 hours by oral route as needed for 30 days. active Not Available Not Available No t Available diclofenac sodium 75 mg tablet,jakub yed release Take 1 tablet(s) twice a day by oral route. prn pain 03/07 completed Not Available Not Available Not Available hydroxyzine HCl 25 mg tablet active Not Available Not Available Not Available ergocalcife rol (vitamin D2) 1,250 mcg (50,000 unit) capsule Take 1 capsule every month by oral route. active Not Available Not Available No t Available hydrocortis one 0.5 % topical ointment APPLY A THIN LAYER TO THE AFFECTED AREA(S) BY TOPICAL ROUTE 2 TIMES PER DAY 12/19 completed Not Available Not Available Not Available Galt 5 mg-325 mg tablet Take 1 tablet every 6 hours by oral route. active Not Available Not Available No t Available fluticasone propionate 50 mcg/actuati on nasal spray,suspe nsion 03/07 completed Not Available Not Available Not Available doxycycline hyclate 100 mg tablet Take 1 tablet twice a day by oral route for 10 days. 10/18 completed Not Available Not Available Not Available buspirone 15 mg tablet TAKE 1/2 TABLET TO TAKE ONE TABLET THREE TIMES DAILY NEEDED FOR STRESS active Not Available Not Available No t Available neomycin-po lymyxin-hyd rocort 3.5 mg-10,000 unit/mL-1 % ear drops,susp INSTILL 4 DROPS INTO AFFECTED EAR(S) THREE TIMES DAILY FOR 7 DAYS 09/18 completed Not Available Not Available Not Available nitrofurant oin monohydrate /macrocryst als 100 mg capsule TAKE 1 CAPSULE BY MOUTH TWICE A DAY active Not Available Not Available No t Available lidocaine (PF) 10 mg/mL (1 %) injection solution In office injection administe red by the provider 03/01 completed [facility]: 0409- 4276- 17 Not Available Not Available Not Available lidocaine (PF) 5 mg/mL (0.5 %) injection solution Take 30 mg by injection route. active Not Available Not Available No t Available prednisolon e 5 mg (21 tabs) tablets in a dose pack 12/09 completed Not Available Not Available Not Available ropivacaine (PF) 5 mg/mL (0.5 %) injection solution in office 09/18 completed [facility] [phone] -[phone] Not Available Not Available Not Available Fluvirin 45 mcg (15 mcg x 3)/0.5 mL intramuscul ar suspension ADM 0.5ML IM UTD 12/09 completed Not Available Not Available Not Available Imvexxy Maintenance Pack 10 mcg vaginal insert active Not Available Not Available Not Available Vitals Date Recorded Body height Body mass index (BMI) Body weight Provider Name and Address Organization Details Last Updated DateTime 2023 175.26 cm 18.5 kg/m2 29691.05 g Laura Webb CNA [place] [facility] 2023 09:19:33 Date Recorded Body height Provider Name an d Address Organization Details Last Updated DateTime 03/06/2023 175.26 cm Marita Singh CMA [place] [facility] 03/06/2023 16:28:43 Date Recorded Body height Body mass index (BMI) Body weight Body temperature Heart rate Oxygen saturation Oxygen saturation in Arterial blood by Pulse oximetry Systolic blood pressure Diastolic blood pressure Provider Name and Address Organization Details Last Updated DateTime 175.26 cm 18.3 kg/m2 76409.4 5 g 97.6 [degF] 77 /min 97 % 97 % 118 mm[Hg] 68 mm[Hg] Camilla Erickson RN [facility] 10:28:42 Date Recorded Body height Body mass index (BMI) Body weight Body temperature Heart rate Oxygen saturation Oxygen saturation in Arterial blood by Pulse oximetry Systolic blood pressure Diastolic blood pressure Provider Name and Address Organization Details Last Updated DateTime 4 175.26 cm 18.8 kg/m2 48977.2 3 g 100 [degF] 83 /min 98 % 98 % 134 mm[Hg] 86 mm[Hg] Theodora Trujillo RN [facility] 4 15:46:01 Social History Question Answer Notes LastModified by Organizat ion Details LastModified Time Tobacco Smoking Status Never Smoker Nathalie Grant jae LONG [facility] 2023 09:15:16 What Is Your Level Of Alcohol Consumption? None [id number] Information not available 04/05/2022 What Is Your Level Of Caffeine Consumption? Moderate [id number] Information not available 04/05/2022 How Much Tobacco Do You Chew? None [id number] Information not available 04/05/2022 In The 14 Days Before Symptom Onset, Have You Had Close Contact With A Laboratory-confir med COVID-19 While That Case Was Ill? No [email or web address] Information not available 2023 In The 14 Days Before Symptom Onset, Have You Had Close Contact With A Person Who Is Under Investigation For COVID-19 While That Person Was Ill? No [email or web address] Information not available 2023 What Type Of Diet Are You Following? REGULAR [id number] Information not available 04/05/2022 Which Illicit Or Recreational Drugs Have You Used? NO [email or web address] Information not available 2023 Do You Or Have You Ever Used E-cigarettes Or Vape? Never Used Electronic Cigarettes [email or web address] Information not available 2023 What Is Your Occupation? [employer] [email or web address] Information not available 2023 What Is Your Relationship Status? [id number] Information not available 04/05/2022 Do You Or Have You Ever Used Smokeless Tobacco? Never Used Smokeless Tobacco [id number] Information not available 04/05/2022 Do You Use Any Illicit Or Recreational Drugs? No [email or web address] Information not available 2023 Has Tobacco Cessation Counseling Been Provided? No [email or web address] Information not available 2023 Do You Have Any Dietary Restrictions? No [email or web address] Information not available 2023 Do You Or Have You Ever Used Any Other Forms Of Tobacco Or Nicotine? No [email or web address] Information not available 2023 Sex: Female Functional Status Question Answer Note LastModified by Organizat ion Details LastModified Time What is your exercise level? Occasional [id number] Information not available 04/05/2022 Mental Status None recorded. Family History Relationship Description Onset Age of this Age Resolved Age Notes LastModified by Organization Details LastModified Time Mother Diabetes mellitus [id number] Not available 04/05/2022 02:42:55 Medical History Condition Response BLINDNESS N RHEUMATIC FEVER N BLADDER PROBLEMS N KIDNEY STONES N MRSA N OTHER # 1 N POLIO N LUNG DISEASE/DISORDER N RADIATION / CHEMOTHERAPY N COPD N Other # 2 N BLOOD DISEASES N SURGERY N EAR OR HEARING PROBLEMS N MUMPS N DEPRESSION (INCLUDING POST ) N BOWEL PROBLEMS N FEMALE PROBLEMS / INFECTIONS N STROKE/TIA N THYROID DISEASE N ULCERS N BENIGN PROSTATIC HYPERPLASIA N MEASLES N CERVICALGIA N TB SKIN TEST N MYOCARDIAL INFARCTION N PARAPELGIA N OBESITY N GERD/NAUSEA N ANEURYSM N URINARY/BLADDER/KIDNEY PROBLEMS N CORONARY ARTERY DISEASE (CAD) N MENIERE'S DISEASE N ADDICTION CONCERNS N ENDOMETRIOSIS N USE OF BLOOD THINNERS N SKIN PROBLEMS N EMPHYSEMA N GASTROINTESTINAL DISORDER N MUSCLE,JOINT OR BONE PROBLEMS N GASTROINTESTINAL BLEEDING N BLOOD CLOTS N ASTHMA N CATARACTS N ERECTILE DYSFUNCTION N GI PROBLEMS N CHF N Low Testosterone N NEUROPATHY N INFERTILITY N AIDS/HIV N FRACTURES N CHEMOTHERAPY / RADIATION N VISION/EYE PROBLEMS N LIVER DISEASE N MALE HYPOGONADISM N HYPERTENSION N TOURETTE'S N ANXIETY DISORDER N BLOOD TRANSFUSION N ANEMIA/BLOOD DISORDER N CHRONIC EAR INFECTIONS N BRONCHITIS N TUBERCULOSIS N GLAUCOMA N FOOT PROBLEM N DIVERTICULITIS N SLEEP APNEA N CHICKENPOX N ALLERGIES/HAYFEVER N INFECTIOUS DISEASE N PROSTATE N HEART ARRHYTHMIA N INSOMNIA N HIGH CHOLESTEROL / HYPERLIPIDEMIA N EYE PROBLEMS N HYPERTHYROIDISM N EATING DISORDER N EDEMA N CHRONIC PAIN SYNDROME N CONSTIPATION N CAROTID BLOCKAGE N BACK / NECK PROBLEMS N HAVE YOU BEEN HOSPITALIZED OR SEEN IN [place] IN THE PAST YEAR ? N ATHEROSCLEROSIS N BREAST PROBLEMS N DIALYSIS N ECZEMA N FIBROMYALGIA N OSTEOPOROSIS N ARTHRITIS N NO SIGNIFICANT PAST MEDICAL HISTORY N APPENDICITIS N DIABETES, TYPE N BAD TEETH N HEARTBURN / REFLUX N ADD/ADHD N AUTISM SPECTRUM DISORDER (ASD) N HEPATITIS / LIVER DISEASE N PULMONARY DISEASE N GOUT N SLEEP DISORDER N ALZHEIMER'S DISEASE N PAIN N DEMENTIA N HERPES N SEIZURES/EPILEPSY N HEADACHES/MIGRAINES N VASCULAR DISEASE N PACEMAKER N DIZZINESS N HEART DISEASE/HEART PROBLEMS N KIDNEY DISEASE N SCARLET FEVER N MULTIPLE SCLEROSIS N DEVELOPMENTAL OR BEHAVIORAL DISORDERS N MENTAL DISORDER/ILLNESS N CANCER: SPECIFY N CARDIAC ARRHYTHMIA N PNEUMONIA N ATRIAL FIBRILLATION N Gall Stones N PULMONARY EMBOLISM N AUTOIMMUNE DISEASE N Gynecological History Statement/Question Response Date of Last Pap 02/06/2020 Date of Last Mammogram 07/06/2020 Date of Last Colonoscopy 02/06/2020 Date of LMP Obstetrics History GPAL:G 0 P 0 0 0 0 Immunizations Vaccine Type Date Status Note Provider Nam e and Address Organization Details Recorded Time influenza, unspecified formulation 2 completed Not Available [facility] 04/05/2022 02:55:25 Influenza, split virus, quadrivalent, preservative 6 completed Not Available [facility] 04/05/2022 02:55:25 COVID-19 Non-US Vaccine, Product Unknown 1 completed Not Available [facility] 04/05/2022 02:55:25 COVID-19 Non-US Vaccine, Product Unknown 1 completed Not Available [facility] 04/05/2022 02:55:25 Influenza, split virus, quadrivalent, PF 9 completed Not Available [facility] 04/05/2022 02:55:26 Tdap 8 completed Not Available [facility] 04/05/2022 02:55:26 Influenza, split virus, quadrivalent, PF 7 completed Not Available [facility] 04/05/2022 02:55:26 Influenza, split virus, quadrivalent, PF 1 completed Not Available [facility] 04/05/2022 02:55:26 Influenza, split virus, quadrivalent, PF 8 completed Not Available [facility] 04/05/2022 02:55:26 Influenza, split virus, quadrivalent, PF 5 completed Not Available [facility] 04/05/2022 02:55:26 Past Encounters Encounter ID Performer Location Encounter Start Date Encounter Closed Date Diagnosis/Indication Diagnosis SNOMED-CT Code Diagnosis ICD10 Code [id number] [facility] [address] [place] [address] 04/19/2020 00:00:00 04/27/2020 16:10:18 [id number] [facility] [address] [place] [address] 06/14/2020 00:00:00 06/14/2020 10:39:22 [id number] [facility] [place] [address] [place] [address] 08/16/2020 00:00:00 08/16/2020 10:29:58 [id number] [facility] [address] [place] [address] 10/22/2020 00:00:00 10/22/2020 14:38:46 [id number] [facility] [place] [address] [facility] [address] [place] [address] 12/13/2020 00:00:00 12/13/2020 09:17:40 [id number] [facility] [address] [place] [address] 03/01/2021 00:00:00 03/01/2021 16:18:58 [id number] [facility] [place] [address] [facility] [address] [place] [address] 04/11/2021 00:00:00 05/04/2021 18:58:37 [id number] [facility] [place] [address] [facility] [address] [place] [address] 06/13/2021 00:00:00 06/13/2021 10:09:52 [id number] [facility] [address] [place] [address] 06/17/2021 00:00:00 06/17/2021 15:59:08 [id number] [facility] [place] [address] [place] [address] 08/26/2021 00:00:00 08/26/2021 11:50:53 [id number] [facility] [place] [address] [facility] [address] [place] [address] 09/28/2021 00:00:00 10/05/2021 09:05:17 [id number] [facility] [address] [address] 10/25/2021 00:00:00 10/25/2021 10:17:49 [id number] [facility] [place] [address] [facility] [address] [place] [address] 12/26/2021 00:00:00 12/26/2021 10:34:17 [id number] [facility] [address] [address] 03/07/2022 00:00:00 03/07/2022 10:15:02 [id number] Syeda Hearn MD [facility] [place] [address] [facility] [address] [place] [address] 04/10/2022 09:23:48 04/10/2022 10:02:03 Otalgia of right ear 5092812567 H92.01 Pain of le ft hip joint 8367288107 86434 M25.552 Low back pain 077117044 M54.50 [id number] MEAGHAN Garcia [facility] [address] [place] [address] 04/17/2022 10:27:21 04/17/2022 13:36:58 Pain of right knee joint 9701687235 12577 M25.561 Chondromal acia of right patella 7180932980 6863313 M22.41 Impingemen t syndrome of left shoulder region 0567153433 03670 M75.42 Tendinitis of left rotator cuff 5727877014 9967278 M67.814 Neck pain 85347268 M54.2 Cervical radiculopathy 04534554 M54.12 [id number] MEAGHAN Garcia [facility] [address] [address] 08/22/2022 09:18:43 08/22/2022 10:05:30 Pain of right knee joint 2093084036 90886 M25.561 Chondromal acia of right patella 1760583856 4148462 M22.41 Impingemen t syndrome of left shoulder region 1218018047 74248 M75.42 Tendinitis of left rotator cuff 5594166685 5319734 M67.814 Neck pain 60762142 M54.2 Cervical radiculopathy 27290989 M54.12 [id number] Syeda Hearn MD [facility] Primary [facility] [address] [facility] 140 [place] [address] 09/18/2022 10:43:09 09/18/2022 11:59:14 Vitamin D deficiency 32001628 E55.9 Hypoglycemia 196249149 E 16.2 Hyperlipid emia screening 521186579 Z13.220 Fatigue 54124606 R53.83 Low back pain 894837162 M54.50 [id number] Syeda Hearn MD [facility] [address] [place] [address] 12/18/2022 10:18:34 12/18/2022 10:45:37 Low back pain 840001627 M54.50 Otalgia of left ear 1010 661738 H92.02 [id number] MEAGHAN Garcia [address] [address] 2023 09:14:20 2023 10:51:07 Tendinitis of left rotator cuff 3509006816 7740237 M67.814 Impingemen t syndrome of left shoulder region 4382586119 23788 M75.42 Shoulder pain 03101722 M 25.519 Cervical radiculopathy 16310609 M54.12 Neck pain 27786733 M54.2 [id number] Syeda Hearn MD [facility] [address] [facility] 140 [place] [address] 03/06/2023 15:50:22 03/06/2023 16:29:31 [id number] [facility] Hearn [facility] [place] [address] [place] [address] 06/18/2023 10:24:08 06/18/2023 10:49:21 Low back pain 116800901 M54.50 [id number] MARY Gonzalez [facility] Primary [facility] [place] [address] [place] [address] 07/10/2023 11:26:58 07/10/2023 11:40:47 [id number] MARY Gonzalez [facility] [place] [address] [place] [address] 08/02/2023 15:36:25 08/02/2023 16:09:35 Pain of left elbow joint 8749998901 2353726 M25.522 Lumbar spondylosis 29000 0009 M47.896 Insomnia 743809910 G47.0 0 Vitamin D deficiency 347 32415 E55.9 Health Concerns Section Related Observation LastModified by Organization Detai ls LastModified Time None Recorded Concern Status LastModified by Organization Details LastModified Time None Recorded Advance Directives Directive None Recorded Payers Encounter Date Sequence Insurance Name Policy Number Policy Khalil Covered Member ID Khalil Member ID Guarantor Name 2023 1 [facility] (MEDICAID HMO) [id number] 0003 Ashtyn Machuca [id number] Ashtyn Machuca 03/06/2023 1 [facility] (MEDICAID HMO) [id number] Ashtyn Machuca [id number] Ashtyn Machuca 06/18/2023 1 [facility] (MEDICAID HMO) [id number] 0003 Ashtyn Machuca [id number] Ashtyn Machuca 07/10/2023 1 [facility] (MEDICAID HMO) [id number] 0003 Ashtyn Machuca [id number] Ashtyn Machuca 08/02/2023 1 [facility] (MEDICAID HMO) [id number] 0003 Ashtyn Machuca [id number] Ashtyn Machuca Notes Date Note Type Note Provider Name and Address Organization Details Recorded Time 2023 text/html patient returns complaining of left shoulder pain again. She has a generalized aching it does keep her awake at night at times she states she will sleep on that side occasionally this aggravates the symptoms. She has pain with reaching behind her back her trying to do anything heavy or repetitive. She is quite thin at 5 ft 9 in tall 125 lb. 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 Denies any weakness no radicular pain no numbness or tingling just chronic and aching throughout the shoulder joint. She is out of cortisone gave her excellent relief. It has been 5 months since her last injection. Denies any new trauma or injury. I have talked to her today about the fact that she has had multiple injections and this may degrade the integrity of the rotator cuff tendon over time. I think we should get an MRI scan it has been a long time since she has had 1 by her report. She has signs and symptoms consistent with chronic tendinitis and impingement we will get new x-rays today as well. I think we need to do further evaluation of advised her that we should really try to get away from the cortisone injections after this 1 she states she is very busy during the holiday seasons and really would like 1 last shot to get her by until the holidays are over. MEAGHAN Garcia [address], [facility] [address], [place], [address], [employer] 2023 10:10:49 06/18/2023 text/html has felt fatigue , dry skin, hair changes, had an episode at work of feeling lightheaded/almost passed out, thinks it was low blood sugar. update 12/18/22: She is taking her hydrocodone/apap prn severe pain. She is having left ear pain, it feels constant. update 06/18/23: She is taking her hydrocodone/apap prn severe pain. No selling/lending/sh aring, no heavy etoh or illegal drug use. It helps her to be more mobile and active. Syeda Hearn MD [address], [place], [address], [employer] 06/18/2023 10:46:53 08/02/2023 text/html Pt is here for f/u Yusef seaman, [employer] [address] [facility], [facility] [address], [place], [address], [place] [facility] [place] [facility] 08/02/2023 16:08:12 OBGyn Episode No OBEpisode recorded.
--- OUTSIDE RECORDS SUMMARY | 2024-02-03 06:46 | XMS_ITS | Encounter Summary ---
Author Organization [facility] Address [address] [place] [address] Care Team Providers Care Lead Performance Support Analyst Name Role Phone Unavailable Primary Care Provider [...]
--- OUTSIDE RECORDS SUMMARY | 2024-02-03 06:46 | XMS_ITS | Encounter Summary ---
Author Organization [facility] Address [address] [place] [address] Care Team Providers Care Aspnet Developer Name Role Phone Unavailable Primary Care Provider Unavailabl e Encounter Details Date Type Department Care Team (Late st Contact Info) Description 03/27/2023 External Device Data [facility] ABSTRACTION Provider, Abstract [...]
--- OUTSIDE RECORDS SUMMARY | 2024-02-03 06:46 | XMS_ITS | Encounter Summary ---
Author Organization [facility] Address [address] [place] [address] Care Team Providers Care Box Order Person Name Role Phone Unavailable Primary Care Provider [...]
== END 2024-01-27 08:37 | disposition home or self-care (01) ==
PROVIDERS: PCP Emergency Medicine; Visit Provider Orthopaedic Surgery
DX: M75.82 Other shoulder lesions, left shoulder (principal); M19.012 Primary osteoarthritis, left shoulder; M75.32 Calcific tendinitis of left shoulder
CPT/HCPCS: 73221